=== PATIENT | male | born 1940 | race Caucasian/White ===

== ENCOUNTER 2020-03-26 10:01 | Outpatient (CLI) | payer MEDICARE, SELFPAY ==
[2020-03-26 10:26] LABS: Basophils Absolute Auto 0.1 K/mm3 (0.0-0.1); Basophils Percent Auto 1.7 % (0.2-1.2); Eosinophils Absolute Auto 0.4 K/mm3 (0-0.3); Hematocrit 43.1 % (42.0-52.0); Hemoglobin 14.7 g/dL (14.0-18.0); Immature Granulocyte Absolute 0.03 K/mm3 (0.00-0.031); Immature Granulocyte Percent A 0.4 % (0-0.5); Lymphocytes Percent Auto 25.9 % (18.3-44.2); Mean Corpuscular HGB Conc 34.1 g/dl (32-36); Mean Corpuscular Hemoglobin 32.9 pg (26-34); Mean Corpuscular Volume 96.4 fl (80-100); Mean Platelet Volume 10.4 fl (7.4-10.4); Monocytes Absolute Auto 0.7 K/mm3 (0.1-0.6); Monocytes Percent Auto 10.4 % (2.6-8.5); Neutrophils Absolute Auto 3.9 K/mm3 (1.3-6.7); Neutrophils Percent Auto 56.6 % (45.5-73.1); Platelet Count Result 241 k/mm3 (150-375); Red Blood Count 4.47 M/mm3 (4.6-6.20); Red Cell Distribution Width 12.8 % (11.5-14.5)
[2020-03-26 10:38] LABS: Alanine Aminotransferase 20 U/L (4-50); Alkaline Phosphatase 71 U/L (38-126); Aspartate Amino Transferase 30 U/L (17-59); Bilirubin,Total 0.7 mg/dL (0.2-1.3); Blood Urea Nitrogen 10 mg/dL (9-20); Calcium 9.2 mg/dL (8.4-10.2); Carbon Dioxide 28 mmol/L (22-30); Chloride 104 mmol/L (98-107); Cholesterol 183 mg/dL (0-200); Estimated Glomerular Filt Rate 58; Glucose 95 mg/dL (75-110); HDL Direct 37 mg/dL; Potassium 4.2 mmol/L (3.4-5.0); Sodium 137 mmol/L (137-145); Triglycerides 235 mg/dL (<150)
[2020-03-26 10:49] LABS: LDL Cholesterol Direct 114 mg/dL
[2020-03-26 11:09] LABS: Prostate Specific Antigen 2.3 ng/mL (< OR = 4.0); Total Triiodothyronine (T3) 0.94 NG/ML (0.97-1.69)
[2020-03-26 11:25] LABS: Creatinine Urine 162.7 mg/dL
[2020-03-26 11:28] LABS: MALB Creatinine Ratio 15.4 mg/g (0-30)
[2020-03-26 11:38] LABS: Free T4 Free Thyroxine 1.46 ng/mL (0.78-2.19); Vitamin D 25 Hydroxy 30.3 ng/mL
== END 2020-03-26 10:02 | disposition home or self-care (01) ==
PROVIDERS: PCP Family Medicine; Visit Provider Family Medicine
DX: I12.9 Hypertensive chronic kidney disease with stage 1 through stage 4 chronic kidney disease, or unspecified chronic kidney disease (principal); E55.9 Vitamin D deficiency, unspecified; N40.1 Benign prostatic hyperplasia with lower urinary tract symptoms; N18.2 Chronic kidney disease, stage 2 (mild); E78.2 Mixed hyperlipidemia; R53.1 Weakness; Z12.5 Encounter for screening for malignant neoplasm of prostate; R80.9 Proteinuria, unspecified
CPT/HCPCS: 36415; 80053; 80061; 82043; 82306; 84153; 84439; 84443; 84480; 85025; G0103

== ENCOUNTER 2020-08-14 08:33 | Outpatient (CLI) | payer MEDICARE, SELFPAY ==
[2020-08-14 09:15] LABS: Alanine Aminotransferase 24 U/L (4-50); Albumin Level 4.1 g/dL (3.5-5.1); Alkaline Phosphatase 78 U/L (38-126); Anion Gap 9 mmol/L (8-16); Aspartate Amino Transferase 41 U/L (17-59); Bilirubin,Total 0.6 mg/dL (0.2-1.3); Blood Urea Nitrogen 19 mg/dL (9-20); Calcium 9.6 mg/dL (8.4-10.2); Carbon Dioxide 27 mmol/L (22-30); Chloride 107 mmol/L (98-107); Estimated Glomerular Filt Rate 58; Glucose 107 mg/dL (75-110); Potassium 3.8 mmol/L (3.4-5.0); Sodium 143 mmol/L (137-145)
[2020-08-14 09:45] LABS: Thyroid Stimulating Hormone 0.985 uIU/mL (0.465-4.680)
== END 2020-08-14 08:34 | disposition home or self-care (01) ==
PROVIDERS: PCP Family Medicine; Visit Provider Internal Medicine Cardiovascular Disease
DX: Z79.899 Other long term (current) drug therapy (principal)
CPT/HCPCS: 36415; 80053; 84443

== ENCOUNTER 2020-09-03 13:25 | Outpatient (CLI) | payer MEDICARE, SELFPAY ==
--- NOTE | ~2020-09-03 | XR_ITS ---
XR chest 2V DATE: 09/03/2020 13:50 INDICATION: Amiodarone therapy TECHNIQUE: PA and lateral views COMPARISON: 05/19/2014 PA and lateral chest FINDINGS: Left pacemaker device with leads overlying right atrium and right ventricle. Heart size is within upper limits of normal. There is aortic calcification and unfolding. No hilar or mediastinal enlargement. No pulmonary infiltrate or consolidation, pleural effusion or pulmonary vascular congestion or pneumo thorax. Degenerative change of the thoracic and lumbar spine. IMPRESSION: Left-sided dual-lead pacemaker device No active cardiopulmonary disease Aortic atherosclerosis Reviewed, dictated and finalized at location A.
== END 2020-09-03 13:26 | disposition home or self-care (01) ==
PROVIDERS: PCP Family Medicine; Visit Provider Internal Medicine Cardiovascular Disease
DX: Z79.899 Other long term (current) drug therapy (principal); Z95.0 Presence of cardiac pacemaker; I70.0 Atherosclerosis of aorta
CPT/HCPCS: 71046

== ENCOUNTER 2020-09-10 09:49 | Outpatient (CLI) | payer MEDICARE, SELFPAY ==
[2020-09-10 11:21] LABS: Basophils Absolute Auto 0.1 K/mm3 (0.0-0.1); Basophils Percent Auto 1.9 % (0.2-1.2); Eosinophils Absolute Auto 0.3 K/mm3 (0-0.3); Hematocrit 41.8 % (42.0-52.0); Hemoglobin 14.3 g/dL (14.0-18.0); Immature Granulocyte Absolute 0.02 K/mm3 (0.00-0.031); Immature Granulocyte Percent A 0.3 % (0-0.5); Lymphocytes Absolute Auto 1.42 K/mm3 (0.9-3.2); Lymphocytes Percent Auto 21.1 % (18.3-44.2); Mean Corpuscular HGB Conc 34.2 g/dl (32-36); Mean Corpuscular Hemoglobin 33.3 pg (26-34); Mean Corpuscular Volume 97.4 fl (80-100); Mean Platelet Volume 10.4 fl (7.4-10.4); Monocytes Absolute Auto 0.7 K/mm3 (0.1-0.6); Monocytes Percent Auto 10.1 % (2.6-8.5); Neutrophils Absolute Auto 4.2 K/mm3 (1.3-6.7); Neutrophils Percent Auto 62.6 % (45.5-73.1); Platelet Count Result 240 k/mm3 (150-375); Red Blood Count 4.29 M/mm3 (4.6-6.20); Red Cell Distribution Width 12.4 % (11.5-14.5); White Blood Count 6.7 K/mm3 (4.5-10.0)
[2020-09-10 11:36] LABS: Alanine Aminotransferase 27 U/L (4-50); Albumin Level 3.7 g/dL (3.5-5.1); Alkaline Phosphatase 69 U/L (38-126); Anion Gap 8 mmol/L (8-16); Aspartate Amino Transferase 37 U/L (17-59); Bilirubin,Total 0.7 mg/dL (0.2-1.3); Blood Urea Nitrogen 17 mg/dL (9-20); Calcium 9.1 mg/dL (8.4-10.2); Carbon Dioxide 31 mmol/L (22-30); Chloride 102 mmol/L (98-107); Cholesterol 115 mg/dL (0-200); Creatine Kinase 148 U/L (55-170); Estimated Glomerular Filt Rate > 60; Glucose 96 mg/dL (75-110); HDL Direct 34 mg/dL; Potassium 3.9 mmol/L (3.4-5.0); Sodium 141 mmol/L (137-145); Triglycerides 137 mg/dL (<150)
[2020-09-10 11:47] LABS: LDL Cholesterol Direct 58 mg/dL
[2020-09-10 12:02] LABS: Creatinine Urine 15.4 mg/dL
[2020-09-10 12:07] LABS: Prostate Specific Antigen 1.5 ng/mL (< OR = 4.0); Thyroid Stimulating Hormone 0.798 uIU/mL (0.465-4.680); Total Triiodothyronine (T3) 0.86 NG/ML (0.97-1.69)
[2020-09-10 12:56] LABS: Free T4 Free Thyroxine 1.41 ng/mL (0.78-2.19); Vitamin D 25 Hydroxy 34.7 ng/mL
[2020-09-10 14:04] LABS: MALB Creatinine Ratio < 39.0 mg/g (0-30); Microalbumin Urine Random < 6.0 mg/L (0-16.7)
== END 2020-09-10 09:50 | disposition home or self-care (01) ==
PROVIDERS: PCP Family Medicine; Visit Provider Family Medicine
DX: M62.81 Muscle weakness (generalized) (principal); E55.9 Vitamin D deficiency, unspecified; E03.9 Hypothyroidism, unspecified; N40.0 Benign prostatic hyperplasia without lower urinary tract symptoms; E78.3 Hyperchylomicronemia; I10 Essential (primary) hypertension; Z12.5 Encounter for screening for malignant neoplasm of prostate
CPT/HCPCS: 36415; 80053; 80061; 82043; 82306; 82550; 84153; 84439; 84443; 84480; 85025; G0103

== ENCOUNTER 2021-02-03 10:36 | Outpatient (CLI) | payer MEDICARE, SELFPAY ==
[2021-02-03 11:12] LABS: Alanine Aminotransferase 34 U/L (4-50); Albumin Level 3.9 g/dL (3.5-5.1); Alkaline Phosphatase 77 U/L (38-126); Anion Gap 4 mmol/L (8-16); Aspartate Amino Transferase 45 U/L (17-59); Bilirubin,Total 0.6 mg/dL (0.2-1.3); Blood Urea Nitrogen 17 mg/dL (9-20); Calcium 9.6 mg/dL (8.4-10.2); Carbon Dioxide 32 mmol/L (22-30); Chloride 104 mmol/L (98-107); Estimated Glomerular Filt Rate 58; Glucose 107 mg/dL (75-110); Potassium 4.5 mmol/L (3.4-5.0); Sodium 140 mmol/L (137-145)
[2021-02-03 12:38] LABS: Thyroid Stimulating Hormone Reflex 0.781 uIU/mL (0.465-4.68)
== END 2021-02-03 10:37 | disposition home or self-care (01) ==
PROVIDERS: PCP Family Medicine; Visit Provider Nurse Practitioner Adult Health
DX: Z79.899 Other long term (current) drug therapy (principal)
CPT/HCPCS: 36415; 80053; 84443

== ENCOUNTER 2021-08-19 10:43 | Outpatient (CLI) | payer MEDICARE, SELFPAY ==
--- NOTE | ~2021-08-19 | XR_ITS ---
XR chest 2V DATE: 08/19/2021 11:17 INDICATION: Dyspnea on exertion TECHNIQUE: PA and lateral views COMPARISON: 09/03/2020 2 view chest FINDINGS: Normal heart size. There is a left transvenous pacemaker device with right atrial and righ t ventricular leads. There is aortic calcification and minimal unfolding. There is no pulmonary infiltrate or consolidation, pulmonary vascular congestion or pleural effusion or pneumothorax. There is degenerative spurring of the thoracic spine. Status post cholecystectomy. IMPRESSION: No active cardiopulmonary disease Left transvenous pacemaker with right atrial and right ventricular leads Reviewed, dictated and finalized at location B.
[2021-08-19 11:29] LABS: Basophils Absolute Auto 0.1 K/mm3 (0.0-0.1); Basophils Percent Auto 1.7 % (0.2-1.2); Eosinophils Absolute Auto 0.2 K/mm3 (0-0.3); Hematocrit 46.4 % (42.0-52.0); Hemoglobin 15.4 g/dL (14.0-18.0); Immature Granulocyte Absolute 0.02 K/mm3 (0.00-0.031); Immature Granulocyte Percent A 0.3 % (0-0.5); Lymphocytes Absolute Auto 1.42 K/mm3 (0.9-3.2); Lymphocytes Percent Auto 20.4 % (18.3-44.2); Mean Corpuscular HGB Conc 33.2 g/dl (32-36); Mean Corpuscular Hemoglobin 33.2 pg (26-34); Mean Platelet Volume 10.1 fl (7.4-10.4); Monocytes Absolute Auto 0.8 K/mm3 (0.1-0.6); Neutrophils Absolute Auto 4.4 K/mm3 (1.3-6.7); Neutrophils Percent Auto 63.6 % (45.5-73.1); Platelet Count Result 279 k/mm3 (150-375); Red Blood Count 4.64 M/mm3 (4.6-6.20); Red Cell Distribution Width 13.1 % (11.5-14.5)
[2021-08-19 11:47] LABS: Alanine Aminotransferase 27 U/L (4-50); Albumin Level 4.4 g/dL (3.5-5.1); Alkaline Phosphatase 86 U/L (38-126); Anion Gap 7 mmol/L (8-16); Aspartate Amino Transferase 45 U/L (17-59); Bilirubin,Total 0.7 mg/dL (0.2-1.3); Blood Urea Nitrogen 26 mg/dL (9-20); Calcium 9.9 mg/dL (8.4-10.2); Carbon Dioxide 27 mmol/L (22-30); Chloride 104 mmol/L (98-107); Estimated Glomerular Filt Rate 58; Glucose 108 mg/dL (65-110); Potassium 4.1 mmol/L (3.4-5.0); Sodium 138 mmol/L (137-145)
== END 2021-08-19 10:44 | disposition home or self-care (01) ==
PROVIDERS: PCP Family Medicine; Visit Provider Internal Medicine Cardiovascular Disease
DX: R06.00 Dyspnea, unspecified (principal); Z79.01 Long term (current) use of anticoagulants; Z79.899 Other long term (current) drug therapy; Z95.0 Presence of cardiac pacemaker
CPT/HCPCS: 36415; 71046; 80053; 84443; 85025

== ENCOUNTER 2021-09-01 07:56 | Outpatient (CLI) | payer MEDICARE, SELFPAY ==
--- NOTE | 2021-09-01 11:29 | WPDPFTINT ---
PFT Procedure Performed PFT Procedure Performed Plethysmography (Lung Vol) Diffusing Cap (DLCO) Flow Vol Loop Spirometry w/o Bronchodil PFT Interpretation Lung volumes were measured with the body plethysmography method. The diminished expiratory reserve volume is due to obesity. The remaining lung volumes are unremarkable. Spirometry showed normal expiratory flow rates and a borderline normal FEV1 to FVC ratio 68%. No bronchodilator study was carried out. Lung diffusion capacity is within the normal range, at 99% predicted. In comparison to previous study done in July of 2019, the FVC is now lower by approximately 0.3 L but FEV1 and lung volumes are essentially unchanged. Also the lung diffusion capacity is unchanged. Impression: Spirometry and lung volumes within the normal range. Lung diffusion capacity is also within the normal range and unchanged from previous study.
== END 2021-09-01 07:57 | disposition home or self-care (01) ==
LOC: ANHPFT 07:58
PROVIDERS: PCP Family Medicine; Visit Provider Internal Medicine Cardiovascular Disease
DX: R06.00 Dyspnea, unspecified (principal); Z79.899 Other long term (current) drug therapy
CPT/HCPCS: 94375; 94726; 94729

== ENCOUNTER 2022-03-23 07:17 | Outpatient (CLI) | payer MEDICARE, SELFPAY ==
[2022-03-23 08:35] LABS: Cholesterol 161 mg/dL (0-200); HDL Direct 33 mg/dL; Triglycerides 162 mg/dL (<150)
[2022-03-23 08:46] LABS: LDL Cholesterol Direct 91 mg/dL
[2022-03-23 09:06] LABS: Thyroid Stimulating Hormone 0.744 uIU/mL (0.465-4.680)
== END 2022-03-23 07:18 | disposition home or self-care (01) ==
LOC: ANHLAB 07:21
PROVIDERS: PCP Family Medicine; Visit Provider Internal Medicine Cardiovascular Disease
DX: Z51.81 Encounter for therapeutic drug level monitoring (principal); Z79.01 Long term (current) use of anticoagulants; Z79.899 Other long term (current) drug therapy; I10 Essential (primary) hypertension
CPT/HCPCS: 36415; 80061; 84443

== ENCOUNTER 2022-10-12 10:28 | Outpatient (CLI) | payer MEDICARE, SELFPAY ==
--- NOTE | ~2022-10-12 | XR_ITS ---
XR chest 2V 10/12/2022 10:53 Indication: Patient on amiodarone therapy. Procedure: PA and lateral views of the chest Comparison: Comparison to multiple prior studies sequentially, with oldest reviewed study dated 05/19. Findings: Heart size normal. Pacemaker leads are stable. There is worsening bibasilar airspace diseas e compared with 08/19/2021 and 09/03/2020. No significant effusion. No pneumothorax. The lungs are hy perinflated which is consistent with, but not diagnostic of chronic obstructive pulmonary disease. Impression: 1: Progressive increase of bibasilar infiltrates which may represent atelectasis/fibrosis or less lik jim atypical pneumonia. Reviewed, dictated and finalized at location A. CAST PRODUCER Impression: 1: Progressive increase of bibasilar infiltrates which may represent atelectasi s/fibrosis or less likely atypical pneumonia.
== END 2022-10-12 10:29 | disposition home or self-care (01) ==
PROVIDERS: PCP Family Medicine; Visit Provider Internal Medicine Cardiovascular Disease
DX: R06.09 Other forms of dyspnea (principal); Z79.899 Other long term (current) drug therapy; R91.8 Other nonspecific abnormal finding of lung field
CPT/HCPCS: 71046

== ENCOUNTER 2022-10-21 12:30 | Outpatient (CLI) | payer MEDICARE, SELFPAY ==
--- NOTE | ~2022-10-21 | CT_ITS ---
EXAMINATION: CT chest high resolution wo id DATE: 10/21/2022 12:54 INDICATION: Assess for interstitial lung disease TECHNIQUE: Computed tomography (CT) of the chest was performed without intravenous contrast. The dose -length product (DLP) was 504.74 mGy-cm. Automated exposure control and iterative reconstruction tech [employer] were employed. COMPARISON: None FINDINGS: The lungs are free of acute opacities. No pleural effusion or pneumothorax. There is no def inite evidence of interstitial lung disease. A dual-lead cardiac pacemaker of the left chest wall end s with leads in expected locations. No pathologically enlarged thoracic lymph nodes are identified. T he heart size is normal. There is a multinodular goiter of the right thyroid lobe. A small sliding hi atal hernia is noted. There are bridging osteophytes at multiple levels in the spine, consistent with diffuse idiopathic skeletal hyperostosis (DISH). IMPRESSION: 1. No specific findings of interstitial lung disease. 2. Multinodular goiter of the right thyroid lobe. Consider thyroid ultrasound for risk stratification . Reviewed, dictated and finalized at location A. OR ORE CONTROLLER IMPRESSION: 1. No specific findings of interstitial lung disease. 2. Multinodular goiter of the right thyroid lobe. Consider thyroid ultrasound f or risk stratification.
== END 2022-10-21 12:31 | disposition home or self-care (01) ==
PROVIDERS: PCP Family Medicine; Visit Provider Internal Medicine Cardiovascular Disease
DX: Z91.89 Other specified personal risk factors, not elsewhere classified (principal); Z79.899 Other long term (current) drug therapy; E04.2 Nontoxic multinodular goiter
CPT/HCPCS: 71250

== ENCOUNTER 2022-10-27 08:51 | Outpatient (CLI) | payer MEDICARE, SELFPAY ==
--- NOTE | 2022-10-27 13:25 | P.PCNPFT_ITS ---
PFT Procedure Performed PFT Procedure Performed Plethysmography (Lung Vol) Diffusing Cap (DLCO) Flow Vol Loop Spirometry w/o Bronchodil PFT Interpretation This is a pulmonary function test with spirometry, plethysmography and diffusing capacity. The test was performed and results interpreted in accordance with the 2019 and 2005 ATS/ERS Task Force guidelines respectively using the Global Lung Function Initiative-2012 reference equations. Patient demonstrated good effort and cooperation. Reproducibility criteria were met. The quality of the spirometry maneuver was Grade A. Findings: Spirometry: The contour the inspiratory and expiratory flow tracing are normal. The FVC is 3.64 L, 102% predicted. The FEV1 is 2.52 L, 96% predicted. The FEV1: FVC ratio 69%. Plethysmography: The total lung capacity is 6.76 L, 101% predicted. The functional residual capacity is 3.77 L, 104% predicted. The residual volume is 3.12 L, 119% predicted. Diffusing capacity: The diffusing capacity unadjusted for hemoglobin and carboxyhemoglobin is 21.9, 98% predicted. The diffusing capacity adjusted for a lveolar volume is 3.96, 109% predicted. In comparison to previous pulmonary function test on 09/01/2021 the FVC is unchanged from 3.42 L to 3.64 L. The FEV1 is unchanged from 2.33 L to 2.52 L. The total lung capacity is unchanged from 6.45 L to 6.76 L. The functional residual capacity is increased from 3.17 L to 3.77 L. The residual volume is unchanged from 3.03 L to 3.12 L. The diffusing capacity unadjusted for hemoglobin and carboxyhemoglobin is unchanged from 22.4 to 21.9. The diffusing capacity adjusted for alveolar volume is un changed from 4.17 to 3.96. Impression: The spirometry is normal without evidence of an obstructive abnormality. The lung volumes are normal. The diffusing capacity is normal. In comparison to previous pulmonary function testing on 09/01/2021 there is a greater than anticipated time dependent increase in the functional residual capacity and no significant change in the FVC, FEV1, total lung capacity, residual volume or diffusing capacity. Clinical correlation is recommended.
== END 2022-10-27 08:52 | disposition home or self-care (01) ==
LOC: ANHPFT 08:52
PROVIDERS: PCP Family Medicine; Visit Provider Internal Medicine Cardiovascular Disease
DX: Z51.81 Encounter for therapeutic drug level monitoring (principal); Z79.899 Other long term (current) drug therapy; Z91.89 Other specified personal risk factors, not elsewhere classified
CPT/HCPCS: 94375; 94726; 94729

== ENCOUNTER 2022-11-18 14:21 | Outpatient (CLI) | payer MEDICARE, SELFPAY ==
[2022-11-18 15:20] LABS: Basophils Absolute Auto 0.1 K/mm3 (0.0-0.1); Basophils Percent Auto 2.3 % (0.2-1.2); Eosinophils Absolute Auto 0.3 K/mm3 (0-0.3); Eosinophils Percent Auto 5.4 % (0-4.4); Hematocrit 42.9 % (42.0-52.0); Hemoglobin 14.7 g/dL (14.0-18.0); Immature Granulocyte Absolute 0.02 K/mm3 (0.00-0.031); Immature Granulocyte Percent A 0.3 % (0-0.5); Lymphocytes Absolute Auto 1.48 K/mm3 (0.9-3.2); Lymphocytes Percent Auto 24.1 % (18.3-44.2); Mean Corpuscular HGB Conc 34.3 g/dl (32-36); Mean Corpuscular Hemoglobin 32.5 pg (26-34); Mean Corpuscular Volume 94.9 fl (80-100); Mean Platelet Volume 10.6 fl (7.4-10.4); Monocytes Absolute Auto 0.7 K/mm3 (0.1-0.6); Monocytes Percent Auto 11.1 % (2.6-8.5); Neutrophils Absolute Auto 3.5 K/mm3 (1.3-6.7); Neutrophils Percent Auto 56.8 % (45.5-73.1); Platelet Count Result 264 k/mm3 (150-375); Red Blood Count 4.52 M/mm3 (4.6-6.20); Red Cell Distribution Width 12.5 % (11.5-14.5); White Blood Count 6.2 K/mm3 (4.5-10.0)
[2022-11-18 16:20] LABS: Vitamin D 25 Hydroxy 34.7 ng/mL
[2022-11-18 16:49] LABS: Creatinine Urine 120.2 mg/dL
[2022-11-18 16:53] LABS: Microalbumin Urine Random 82.9 mg/L (0-16.7)
[2022-11-18 17:27] LABS: Alanine Aminotransferase 22 U/L (6-50); Alkaline Phosphatase 82 U/L (38-126); Anion Gap 8 mmol/L (8-16); Aspartate Amino Transferase 31 U/L (17-59); Bilirubin,Total 0.8 mg/dL (0.2-1.3); Blood Urea Nitrogen 11 mg/dL (9-20); Calcium 9.4 mg/dL (8.4-10.2); Carbon Dioxide 25 mmol/L (22-30); Chloride 107 mmol/L (98-107); Cholesterol 169 mg/dL (0-200); Estimated Glomerular Filt Rate > 60; Glucose 93 mg/dL (65-110); HDL Direct 35 mg/dL; Potassium 4.2 mmol/L (3.4-5.0); Sodium 140 mmol/L (137-145); Triglycerides 165 mg/dL (<150)
[2022-11-18 17:40] LABS: LDL Cholesterol Direct 99 mg/dL
[2022-11-18 17:59] LABS: Thyroid Stimulating Hormone 0.588 uIU/mL (0.465-4.680); Total Triiodothyronine (T3) 0.92 NG/ML (0.97-1.69)
== END 2022-11-18 14:22 | disposition home or self-care (01) ==
PROVIDERS: PCP Family Medicine; Visit Provider Family Medicine
DX: I50.9 Heart failure, unspecified (principal); I48.91 Unspecified atrial fibrillation; G47.30 Sleep apnea, unspecified; E04.1 Nontoxic single thyroid nodule; R32 Unspecified urinary incontinence; R13.10 Dysphagia, unspecified
CPT/HCPCS: 36415; 80053; 80061; 82043; 82306; 84153; 84436; 84443; 84480; 85025

== ENCOUNTER 2022-11-23 10:51 | Outpatient (CLI) | payer MEDICARE, SELFPAY ==
--- NOTE | ~2022-11-23 | US_ITS ---
EXAMINATION: US thyroid DATE: 11/23/2022 12:21 INDICATION: Thyroid nodule TECHNIQUE: Multiple ultrasound images of the thyroid were obtained. COMPARISON: None. FINDINGS: The right thyroid lobe measures 5.1 x 3.1 x 2.8 cm. The left thyroid lobe measures 4.9 x 1.6 x 2.1 c m. The thyroid isthmus measures 6 mm . There are 3 relatively similar appearing solid heterogeneousl y hypoechoic masses in the right thyroid which are wider than tall and with smooth with ill-defined m argins and without echogenic foci (TI-RADS 4, moderately suspicious , FNA if >=1.5 cm, annual followu p is >=1 cm). The largest and most caudal measures 3.3 cm maximal diameter, the middle and second lar gest measures 2.3 cm in the most cephalad and smallest measures 1.3 cm. There are 2 nodules in the le ft thyroid lobe, the largest with similar appearance measuring 1.6 cm. The smaller is also similar in appearance aside from a significant cystic component (TI-RADS 3, mildly suspicious , FNA if >=2.5 cm , annual followup is >=1.5 cm). IMPRESSION: 1. Multinodular goiter. Recommend ultrasound-guided biopsy of the 2 largest 3.3 cm and 2.3 cm TI RADS 4 right thyroid nodules. Reviewed, dictated and finalized at location A. D ICER
== END 2022-11-23 10:52 | disposition home or self-care (01) ==
PROVIDERS: PCP Family Medicine; Visit Provider Nurse Practitioner Adult Health
DX: E04.2 Nontoxic multinodular goiter (principal); R13.10 Dysphagia, unspecified
CPT/HCPCS: 76536

== ENCOUNTER 2022-12-04 12:17 | Outpatient (CLI) | payer MEDICARE, SELFPAY ==
--- NOTE | ~2022-12-04 | US_ITS ---
EXAMINATION: US thyroid DATE: 12/04/2022 14:15 INDICATION: Multinodular goiter. TECHNIQUE: Multiple ultrasound images of the thyroid were obtained. COMPARISON: Thyroid ultrasound 11/23/2022, neck CT 02/03/2017 FINDINGS: Contiguous nodules in right thyroid lobe together measure 4.3 x 3.1 x 3.3 cm. On the prior ultrasound , the sizes of multiple nodules together contributing to this larger mass were measured. IMPRESSION: 1. Right thyroid nodules, stable from the CT from 02/03/2017, likely benign. Given this long-term stab ility, the biopsy was canceled. Reviewed, dictated and finalized at location A. T OFFICE ADMINISTRATOR IMPRESSION: 1. Right thyroid nodules, stable from the CT from 02/03/2017, likely benign. Giv en this long-term stability, the biopsy was canceled.
== END 2022-12-04 12:18 | disposition home or self-care (01) ==
PROVIDERS: PCP Family Medicine; Visit Provider Nurse Practitioner Adult Health
DX: E04.2 Nontoxic multinodular goiter (principal)
CPT/HCPCS: 76536

== ENCOUNTER 2023-04-09 09:41 | Outpatient (CLI) | payer MEDICARE, SELFPAY ==
[2023-04-09 10:32] LABS: Alanine Aminotransferase 22 U/L (6-50); Albumin Level 3.9 g/dL (3.5-5.1); Alkaline Phosphatase 68 U/L (38-126); Anion Gap 7 mmol/L (8-16); Aspartate Amino Transferase 27 U/L (17-59); Bilirubin,Total 0.6 mg/dL (0.2-1.3); Blood Urea Nitrogen 14 mg/dL (9-20); Calcium 9.1 mg/dL (8.4-10.2); Carbon Dioxide 28 mmol/L (22-30); Chloride 106 mmol/L (98-107); Estimated Glomerular Filt Rate > 60; Glucose 105 mg/dL (65-110); Potassium 4.2 mmol/L (3.4-5.0); Sodium 141 mmol/L (137-145)
== END 2023-04-09 09:42 | disposition home or self-care (01) ==
LOC: ANHLAB 09:44
PROVIDERS: PCP Family Medicine; Visit Provider Internal Medicine Cardiovascular Disease
DX: I48.92 Unspecified atrial flutter (principal); Z79.899 Other long term (current) drug therapy
CPT/HCPCS: 36415; 80053; 84443

== ENCOUNTER 2023-09-14 10:13 | Emergency (ER) | payer MEDICARE, SELFPAY ==
--- NOTE | ~2023-09-14 | CT_ITS ---
CT of the Abdomen and Pelvis: Indication: Abdominal pain Technique: 2.5 mm axial scans were obtained through the abdomen and pelvis following intravenous adm inistration of 100 cc of Omnipaque 350. Dose reduction technique was used on this scan by utilizing a utomated exposure control and iterative reconstruction technique. The dose-length product (DLP) was 1 050.47 mGy-cm. Findings: Scans through the lung bases are unremarkable. The liver, spleen, pancreas, adrenals and right kidney are within normal limits. Cholecystectomy clip s are present. Small nonobstructing left lower pole renal stone noted. There are atherosclerotic calc ifications of the aorta. No lymphadenopathy. No bowel obstruction or bowel wall thickening. There is no evidence to suggest acute appendicitis. Sm all ventral fat-containing hernia present. Images through the pelvis are degraded by streak artifact from bilateral hip arthroplasty. Urinary bl adder unremarkable. No definite pelvic mass seen. Bilateral fat-containing inguinal hernias are prese nt, left greater than right. No ascites. Impression: Bilateral fat-containing hernias, left greater than right. Small ventral hernia. Small nonobstructing left lower pole renal stone. Reviewed, dictated and finalized at location . TABLE WORKER Impression: Bilateral fat-containing hernias, left greater than right. Small ventral hernia. Small nonobstructing left lower pole renal stone.
--- NOTE | ~2023-09-14 | XR_ITS ---
EXAMINATION: XR chest 2V DATE: 09/14/2023 11:03 INDICATION: Chest pain TECHNIQUE: Frontal and lateral views of the chest are obtained COMPARISON: 10/12/2022 FINDINGS: There is mild atelectasis of the lung bases. No pleural effusion or pneumothorax. The cardi omediastinal silhouette is normal. There are bridging osteophytes at multiple levels in the spine, co nsistent with diffuse idiopathic skeletal hyperostosis (DISH). A dual-lead cardiac pacemaker of the l t chest wall ends with leads in expected locations. IMPRESSION: 1. No acute cardiopulmonary abnormality. Reviewed, dictated and finalized at location L. REFINISHER
--- NOTE | 2023-09-14 10:14 | ECG_ITS ---
Measurements Intervals [place] Rate: 115 P: 267 OK: 246 QRS: -73 QRSD: 154 T: 19 QT: 386 QTc: 534 Interpretive Statements ECTOPIC ATRIAL TACHYCARDIA RIGHT BUNDLE BRANCH BLOCK LEFT ANTERIOR FASCICULAR BLOCK CANNOT RULE OUT SEPTAL INFARCT, AGE INDETERMINATE ABNORMAL ECG NO PREVIOUS ECG AVAILABLE FOR COMPARISON Electronically Signed On 09-14-2023 10:24:49 TAPPER BIT by Reagan Dalton D.O.
[2023-09-14 10:18] VITALS: BP 109/74; PULSE 112; RESP 18; TEMP 36.5; O2SAT 100
[2023-09-14 11:03] LABS: Basophils Absolute Auto 0.1 K/mm3 (0.0-0.1); Basophils Percent Auto 0.6 % (0.2-1.2); Hemoglobin 13.7 g/dL (14.0-18.0); Immature Granulocyte Absolute 0.02 K/mm3 (0.00-0.031); Immature Granulocyte Percent A 0.2 % (0-0.5); Lymphocytes Absolute Auto 0.84 K/mm3 (0.9-3.2); Lymphocytes Percent Auto 9.5 % (18.3-44.2); Mean Corpuscular HGB Conc 33.4 g/dl (32-36); Mean Corpuscular Hemoglobin 31.7 pg (26-34); Mean Corpuscular Volume 94.9 fl (80-100); Mean Platelet Volume 10.5 fl (7.4-10.4); Monocytes Absolute Auto 0.6 K/mm3 (0.1-0.6); Monocytes Percent Auto 6.2 % (2.6-8.5); Neutrophils Absolute Auto 7.4 K/mm3 (1.3-6.7); Neutrophils Percent Auto 83.5 % (45.5-73.1); Platelet Count Result 274 k/mm3 (150-375); Red Blood Count 4.32 M/mm3 (4.6-6.20); Red Cell Distribution Width 12.7 % (11.5-14.5); White Blood Count 8.8 K/mm3 (4.5-10.0)
[2023-09-14 11:12] LABS: Alanine Aminotransferase 21 U/L (6-50); Albumin Level 4.3 g/dL (3.5-5.1); Alkaline Phosphatase 87 U/L (38-126); Anion Gap 10 mmol/L (8-16); Aspartate Amino Transferase 27 U/L (17-59); Bilirubin,Total 0.9 mg/dL (0.2-1.3); Blood Urea Nitrogen 16 mg/dL (9-20); Calcium 10.2 mg/dL (8.4-10.2); Carbon Dioxide 22 mmol/L (22-30); Chloride 105 mmol/L (98-107); Estimated CRCL calculation 60 ml/min; Estimated Glomerular Filt Rate > 60; Glucose 135 mg/dL (65-110); Lipase 110 U/L (23-300); Potassium 3.6 mmol/L (3.4-5.0); Sodium 137 mmol/L (137-145)
[2023-09-14 11:24] LABS: Troponin I < 0.012 ng/mL (0.000-0.034)
--- NOTE | 2023-09-14 11:25 | ED.CHESTPAIN ---
HPI - Chest Pain General Chief Complaint: Chest Pain Stated Complaint: nausea vomitting, chestpain Time Seen by Provider: 09/14/23 10:35 History of Present Illness HPI narrative: Pt presents with lower chest pain after having episode of emesis. Pt says he has not vomited since his Jose fundoplication procedure many years ago. Pt has been nasueated all morning and actually vomited several times. Pt has a history of non Hodgkins lymphoma and a Pacemaker and a fiv as well. Pt on xarelto. Related Data Home Medications Medication Instructions Recorded Confirmed cinnamon bark 500 mg capsule 500 mg PO DAILY 04/08/21 06/08/23 (Cinnamon) finasteride 5 mg tablet 5 mg PO DAILY 04/08/21 06/08/23 folic acid 800 mcg tablet 0.8 mg PO DAILY 04/08/21 06/08/23 furosemide 40 mg tablet 40 mg PO QAM 04/08/21 06/08/23 inulin-sorbitol 2 gram chewable tablet PO 04/08/21 06/08/23 tablet (Fiber Supplement (inulin)) lecithin 1,200 mg capsule 1,200 mg PO DAILY 04/08/21 06/08/23 lisinopril 20 mg tablet 20 mg PO DAILY 04/08/21 06/08/23 loratadine 10 mg capsule 10 mg PO DAILY 04/08/21 06/08/23 metoprolol tartrate 100 mg tablet 100 mg PO DAILY 04/08/21 06/08/23 multivitamin 1 tablet PO DAILY 04/08/21 06/08/23 rivaroxaban 20 mg tablet 20 mg PO DAILY 04/08/21 06/08/23 amlodipine 5 mg tablet 10 mg PO DAILY 06/08/23 06/08/23 Allergies Allergy/AdvReac Type Severity Reaction Status Date / Time meperidine Allergy Severe Anaphylactic Verified 09/14/23 10:54 Shock Review of Systems Review of Systems: All systems reviewed & are unremarkable except as noted in HPI and below PMFSH Past Medical History Medical History Arthritis Cancer Congestive cardiac failure Heart disease Hypertension Lipoma Pacemaker Surgical History Surgical History H/O shoulder surgery left History of cholecystectomy History of hernia repair History of hip replacement left and right, Dr. Small Family History Family History Mother Family history of primary malignant neoplasm of liver Sibling Family history of malignant neoplasm of breast in first degree relative Other Carcinoma of colon Family history of Alzheimer's disease Family history of cardiovascular disease Family history of malignant neoplasm Family history of malignant neoplasm of breast Malignant neoplasm of prostate Social History Social History Smoking status: Former smoker Smoking end date: 11/08/1964 Alcohol intake: current Gender identity (if verbalized by the patient): Male Exam Const: General: healthy appearing and no acute distress Nutritional Appearance: well nourished Orientation/consciousness: patient oriented x3 Limitations: no limitations Chest: Chest palpation & inspection: tenderness costochondral junction and costal cartilage Resp: Effort & Inspection: normal respiratory effort Auscultation: clear to auscultation bilaterally Cardio: Rate: regular rate Rhythm: abnormal rhythm GI: Auscultation: normal bowel sounds Skin: General skin exam: normal color Wounds: no wounds Neuro: General: patient oriented x3, moves all extremities, no meningeal signs and no focal motor deficits Cranial nerves: Yes Nystagmus not present Speech: normal speech Extrem: General: normal to inspection and no clubbing, cyanosis or edema Psych: Mental Status: mental status grossly normal Affect: normal affect Attitude: cooperative Course Vital Signs Vital signs: Vital Signs Temperature 97.7 F 09/14/23 10:18 Pulse Rate 112 H 09/14/23 10:18 Respiratory Rate 18 09/14/23 10:18 Blood Pressure 109/74 09/14/23 10:18 Pulse Oximetry 100 09/14/23 10:18 Oxygen Delivery Room Air 09/14/23 10:18 Temperature 97.7 F 09/14/23 10:18 Pulse Rate
[2023-09-14] MEDS: ONDANSETRON INJ 4 MG/2 ML VIAL IV PUSH (11:30)
[2023-09-14 11:31] LABS: INR 1.2; Prothrombin Time 15.7 Seconds (11.1-14.7)
[2023-09-14 11:32] LABS: Partial Thromboplastin Time 39.2 SECONDS (22.3-36.8)
[2023-09-14] MEDS: PROCHLORPERAZINE EDISYLATE 10 MG/2 ML VIAL IV PUSH (12:48)
[2023-09-14] MEDS: fentaNYL CITRATE INJ (*CRX) 100 MCG/2 ML VIAL 25 MCG IV PUSH (12:48)
[2023-09-14 14:10] VITALS: BP 124/74; PULSE 67; RESP 20; O2SAT 98
[2023-09-14 14:16] LABS: Troponin I 0.013 ng/mL (0.000-0.034)
== END 2023-09-14 14:16 | disposition home or self-care (01) ==
PROVIDERS: Emergency Provider Emergency Medicine; PCP Family Medicine
DX: K29.70 Gastritis, unspecified, without bleeding (principal); I10 Essential (primary) hypertension; Z95.0 Presence of cardiac pacemaker; Z87.891 Personal history of nicotine dependence
CPT/HCPCS: 36415; 71046; 74177; 80053; 83690; 84484; 85025; 85610; 85730; 93005; 96374; 96375; 99284; J0780; J2405; J3010; Q9967

== ENCOUNTER 2023-11-24 00:26 | Day surgery (SDC) | payer MEDICARE, SELFPAY ==
[2023-11-23 16:38] VITALS: BMI 33.5
[2023-11-24 07:39] LABS: Basophils Absolute Auto 0.2 K/mm3 (0.0-0.1); Basophils Percent Auto 2.2 % (0.2-1.2); Eosinophils Absolute Auto 0.3 K/mm3 (0-0.3); Eosinophils Percent Auto 4.8 % (0-4.4); Hematocrit 43.5 % (42.0-52.0); Hemoglobin 14.2 g/dL (14.0-18.0); Immature Granulocyte Absolute 0.01 K/mm3 (0.00-0.031); Immature Granulocyte Percent A 0.1 % (0-0.5); Lymphocytes Absolute Auto 1.73 K/mm3 (0.9-3.2); Lymphocytes Percent Auto 25.8 % (18.3-44.2); Mean Corpuscular HGB Conc 32.6 g/dl (32-36); Mean Corpuscular Hemoglobin 31.9 pg (26-34); Mean Corpuscular Volume 97.8 fl (80-100); Mean Platelet Volume 10.4 fl (7.4-10.4); Monocytes Absolute Auto 0.7 K/mm3 (0.1-0.6); Monocytes Percent Auto 10.4 % (2.6-8.5); Neutrophils Absolute Auto 3.8 K/mm3 (1.3-6.7); Neutrophils Percent Auto 56.7 % (45.5-73.1); Platelet Count Result 249 k/mm3 (150-375); Red Blood Count 4.45 M/mm3 (4.6-6.20); Red Cell Distribution Width 12.7 % (11.5-14.5); White Blood Count 6.7 K/mm3 (4.5-10.0)
[2023-11-24 07:44] VITALS: BP 138/81; PULSE 82; RESP 13; TEMP 36.4; O2SAT 98; BMI 32.4
[2023-11-24 07:48] LABS: Anion Gap 10 mmol/L (8-16); Blood Urea Nitrogen 11 mg/dL (9-20); Calcium 9.8 mg/dL (8.4-10.2); Carbon Dioxide 25 mmol/L (22-30); Chloride 107 mmol/L (98-107); Estimated CRCL calculation 56 ml/min; Estimated Glomerular Filt Rate > 60; Glucose 108 mg/dL (65-110); Sodium 142 mmol/L (137-145)
[2023-11-24 07:50] LABS: INR 1.1; Prothrombin Time 14.3 Seconds (11.1-14.7)
--- NOTE | 2023-11-24 08:14 | PM.IMHP ---
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 Pulse generator header set reached elective replacement interval and he is scheduled for a generator change today. The patient has a history of cardioversion in 2018 and he was treated with amiodarone which was discontinued in 2021. He had recurrent AFib flutter a couple months ago a mildly increased heart rate; diltiazem was added to his metoprolol and he has been feeling well since then. Is NPO, denies any signs or symptoms of infection, and his last dose of Xarelto was on Wednesday. He has a history of hypertension, hyperlipidemia, a mildly abnormal stress test, and sleep apnea. Review of Systems Constitutional: Constitutional: Denies fever(s) Cardiovascular: Cardiovascular: Denies chest pain, Denies pedal edema, Denies lightheadedness and Denies dyspnea Respiratory: Respiratory: Denies chest congestion and Denies dyspnea Gastrointestinal: Gastrointestinal: Denies abdominal pain and Denies hematochezia Musculoskeletal: Musculoskeletal: Reports no additional musculoskeletal complaints Integumentary/Breasts: Skin/Breast: Reports system reviewed and no additional complaints, except as docu Neurologic: Reports system reviewed and no additional complaints, except as documented and Denies behavioral changes Psychiatric: Psychiatric: Denies behavioral changes [facility] Past Medical History Medical History (Updated 11/24/23 @ 08:22 by Mere Barriga MD) Arthritis Cancer Heart disease Hyperlipidemia Hypertension Lipoma ANNABELLA (obstructive sleep apnea) Pacemaker [employer] dual-chamber pacemaker [address] Bunch for tachy-coty syndrome Surgical History Surgical History H/O shoulder surgery left History of cholecystectomy History of hernia repair History of hip replacement left and right, Dr. Small Family History Family History (Updated 11/24/23 @ 08:20 by Mere Barriga MD) Mother Family history of primary malignant neoplasm of liver Sibling Family history of malignant neoplasm of breast in first degree relative Sibling Heart disease CAD, age 34 Other Carcinoma of colon Family history of Alzheimer's disease Family history of cardiovascular disease Family history of malignant neoplasm Family history of malignant neoplasm of breast Malignant neoplasm of prostate Social History Social History Smoking status: Former smoker Second hand tobacco smoke exposure: No Smoking end date: 11/08/1964 Alcohol intake: current Substance use: never Substance use type: does not use Living arrangements: with family Additional living arrangements comments: LIVES WITH [facility]. PT. IS CAREGIVER Gender identity (if verbalized by the patient): Male Spiritual care concerns: No Meds Home Medications and Allergies Home Medications Medication Instructions Recorded Confirmed Type cinnamon bark 500 mg capsule 500 mg PO DAILY 04/08/21 11/23/23 History (Cinnamon) finasteride 5 mg tablet 5 mg PO DAILY 04/08/21 11/23/23 History folic acid 800 mcg tablet 0.8 mg PO DAILY 04/08/21 11/23/23 History furosemide 40 mg tablet 40 mg PO QAM 04/08/21 11/23/23 History inulin-sorbitol 2 gram chewable 1.5 tablet PO DAILY 04/08/21 11/23/23 History tablet (Fiber Supplement (inulin)) lecithin 1,200 mg capsule 1,200 mg PO DAILY 04/08/21 11/23/23 History lisinopril 20 mg tablet 20 mg PO DAILY 04/08/21 11/23/23 History loratadine 10 mg capsule 10 mg PO DAILY 04/08/21 11/23/23 History metoprolol tartrate 100 mg tablet 75 mg PO BID 04/08/21 11/23/23 History multivitamin 1 tablet PO DA
--- NOTE | 2023-11-24 08:24 | WPDMODSED ---
Moderate Sedation Note-Pt Data Patient Data Diagnosis: pulse generator at elective replacement interval Present Complaint: dual-chamber [employer] pacemaker at elective replacement interval. History of paroxysmal atrial flutter, recently persistent. Procedure to be performed/Plan: Conscious sedation generator change Allergies Allergy/AdvReac Type Severity Reaction Status Date / Time meperidine Allergy Severe Anaphylactic Verified 11/24/23 07:29 Shock atorvastatin Allergy Muscle Pain Verified 11/24/23 07:29 Home Medications Medication Instructions Recorded Confirmed Type cinnamon bark 500 mg capsule 500 mg PO DAILY 04/08/21 11/23/23 History (Cinnamon) finasteride 5 mg tablet 5 mg PO DAILY 04/08/21 11/23/23 History folic acid 800 mcg tablet 0.8 mg PO DAILY 04/08/21 11/23/23 History furosemide 40 mg tablet 40 mg PO QAM 04/08/21 11/23/23 History inulin-sorbitol 2 gram chewable 1.5 tablet PO DAILY 04/08/21 11/23/23 History tablet (Fiber Supplement (inulin)) lecithin 1,200 mg capsule 1,200 mg PO DAILY 04/08/21 11/23/23 History lisinopril 20 mg tablet 20 mg PO DAILY 04/08/21 11/23/23 History loratadine 10 mg capsule 10 mg PO DAILY 04/08/21 11/23/23 History metoprolol tartrate 100 mg tablet 75 mg PO BID 04/08/21 11/23/23 History multivitamin 1 tablet PO DAILY 04/08/21 11/23/23 History rivaroxaban 20 mg tablet 20 mg PO DAILY 04/08/21 11/23/23 History prochlorperazine maleate 5 mg 5 mg PO Q8H PRN nausea and 09/14/23 11/23/23 Rx tablet (Compazine) vomiting #10 tabs diltiazem HCl 180 mg 180 mg PO DAILY 11/23/23 11/23/23 History capsule,extended release 24 hr, controlled (DILT-XR) lisinopril 40 mg tablet 40 mg PO QHS 11/23/23 11/23/23 History saw palmetto 450 mg capsule 450 mg PO BID 11/23/23 11/23/23 History Current Medications: Active Medications Cefazolin Sodium (Ancef 1 Gm/Ns 50 Ml) 1 gm in 50 mls @ 100 mls/hr IVPB ONCE ONE Stop: 11/24/23 08:59 Sedation/Anesthesia: No previous sedation/anesthesia problems (including family history). [facility] Past Medical History Medical History Arthritis Cancer Heart disease Hyperlipidemia Hypertension Lipoma ANNABELLA (obstructive sleep apnea) Pacemaker [employer] dual-chamber pacemaker [address] Bunch for tachy-coty syndrome Surgical History Surgical History H/O shoulder surgery left History of cholecystectomy History of hernia repair History of hip replacement left and right, Dr. Small Family History Family History Mother Family history of primary malignant neoplasm of liver Sibling Family history of malignant neoplasm of breast in first degree relative Sibling Heart disease CAD, age 34 Other Carcinoma of colon Family history of Alzheimer's disease Family history of cardiovascular disease Family history of malignant neoplasm Family history of malignant neoplasm of breast Malignant neoplasm of prostate Social History Social History Smoking status: Former smoker Second hand tobacco smoke exposure: No Smoking end date: 11/08/1964 Alcohol intake: current Substance use: never Substance use type: does not use Living arrangements: with family Additional living arrangements comments: LIVES WITH [facility]. PT. IS CAREGIVER Gender identity (if verbalized by the patient): Male Spiritual care concerns: No Mod Sed Physical Exam Physical Exam Pre Procedural Exam: Normal: Appearance, Eyes, Ears, Nose, Neck, Throat, Airway, Lungs, Heart Size, Heart Rate, Heart Rhythm, Neuro Exam, Abdomen, Extremities and Skin ( pacemaker incision is well-healed) Hours since solid foods: 8 Hours since liquid intake: 12 Mallampati Classification: class IV Internal Medicine - PN: Obj Da Vital Sig
--- NOTE | 2023-11-24 09:35 | PM.OP ---
Procedure Note - Brief Procedure Note - Brief Date of procedure: 11/24/23 MAT Post-op diagnosis: Other ( status post pacemaker generator change) Procedure performed: Conscious sedation Generator change Surgeon: Mere Barriga MD Description of procedure: uneventful generator change Complications: No immediate complications Condition: Stable Disposition: Observation
--- NOTE | 2023-11-24 09:35 | W.PM.PROC2 ---
Procedure Note - Detailed Date of Procedure 11/24/23 Pre-op Diagnosis MAT Post-op Diagnosis Other ( status post pacemaker generator change) Procedure Performed Conscious sedation Generator change Surgeon Mere Barriga MD Anesthesia Local ( with conscious sedation) Indications Kentrell Andersen is an 83-year-old male with a history of paroxysmal atrial flutter and tachy-coty syndrome, status post [employer] dual-chamber pacemaker [place] [address] Bunch.? Pulse generator has reached elective replacement interval and he is scheduled for a generator change today. The patient has a history of cardioversion in 2018 and he was treated with amiodarone which was discontinued in 2021.? He had recurrent atrial flutter a couple months ago with a mildly increased heart rate; diltiazem was added to his metoprolol and he has been feeling well since then.? He is NPO, denies any signs or symptoms of infection, and his last dose of Xarelto was on Wednesday.? He has a history of hypertension, hyperlipidemia, a mildly abnormal stress test, and sleep apnea. Findings underlying atrial flutter heart rate 80s Description of Procedure PROCEDURE: Conscious sedation Generator change UNDERLYING RHYTHM: a flutter heart rate 80s CONSCIOUS SEDATION: Assessment: The patient has no history of anesthesia problems. The oropharynx is clear. The patient was deemed to be a good candidate for conscious sedation. The patient had continuous hemodynamic and oximetric monitoring during the procedure. Start time: 8:55 a.m. Completion time: 9:28 a.m. Total conscious sedation time: 33 minutes Medications: Versed 1 mg, fentanyl 50 mcg IV push Trained observer: Briseyda Mitchell RN Outcome: The patient tolerated the procedure well with no complications. PROCEDURE: After informed consent, the patient is brought to the laborer shellfish processing and the left prepectoral area was prepped and draped in usual fashion. The patient was given a prophylactic antibiotic intravenously with 2 g of Ancef. After conscious sedation as described above, the area was anesthetized with 1% lidocaine. A skin incision is made with the Plasma Blade and carried down to the pacing capsule which was also incised. Since the header was caudal, the incision was lower than the original incision. Hemostasis is obtained using the Plasma Blade. The lead/s was/were freed from the underlying capsule and inspected and were found to be intact. The pulse generator was delivered from the pocket. The lead/s was/were disconnected from the existing device and reconnected to the new device. A gentle tug could not remove it/them. The device and lead/s was/were interrogated and found to be functioning appropriately. The area was copiously irrigated with antibiotic-containing solution. The device was replaced in the pocket. The subcutaneous tissues were closed in a two-layer fashion with interrupted 2 0 Vicryl sutures and the skin was closed in a continuous fashion using 4 0 Vicryl. The area was cleansed, an Aquacel dressing applied. The patient tolerated the procedure well with no complications. Estimated blood loss was negligible. THRESHOLD INFORMATION: Atrial lead: P-wave 0.5 mV, atrial flutter, impedance 3-75 Ohms RV lead: R-wave sensing greater than 12 mV, impedance 400 Ohms, threshold 0.75 at 0.4 milliseconds PROGRAMMED PARAMETERS: DDDR 65/130, AVD 225/200 Implants DEVICE INFORMATION: New pulse generator: [employer] model model UC2697, serial [id number] Existing right atrial lead: [employer] model 1998, 52 cm, serial [id number]? [id number], implanted 05/18/2014 Existing right ventricular lead: [employer] model 2088 TC, 58 cm, serial [id number], implanted 05/18/2014 Explant pulse generator: [employer] model 2240, serial [id number], implanted 05/18/2014 Estimated Blood Loss 5 (cc) Complications No immediate complications Condition Stable Disposition Observation
[2023-11-24 09:45] VITALS: BP 98/72; PULSE 80; RESP 16; O2SAT 94
[2023-11-24 10:00] VITALS: BP 99/68; PULSE 81; RESP 15; O2SAT 97
[2023-11-24 10:15] VITALS: BP 109/77; PULSE 80; RESP 15; O2SAT 94
[2023-11-24 10:30] VITALS: BP 121/76; PULSE 80; RESP 8; O2SAT 93
[2023-11-24 10:45] VITALS: BP 126/90; PULSE 80; RESP 18; O2SAT 94
== END 2023-11-24 11:20 | disposition home or self-care (01) ==
PROVIDERS: PCP Family Medicine; Visit Provider Internal Medicine Cardiovascular Disease
PROC: 0JPT0PZ Removal of Cardiac Rhythm Related Device from Trunk Subcutaneous Tissue and Fascia, Open Approach (ICD-10-PCS; CPT 33228; principal; 2023-11-24 08:30)
DX: Z45.010 Encounter for checking and testing of cardiac pacemaker pulse generator [battery] (principal); I48.92 Unspecified atrial flutter; Z87.891 Personal history of nicotine dependence; E78.5 Hyperlipidemia, unspecified; I10 Essential (primary) hypertension; Z96.643 Presence of artificial hip joint, bilateral
CPT/HCPCS: 33228; 36415; 80048; 85025; 85610; C1785; J0690; J2250; J3010; J7040

== ENCOUNTER 2023-12-27 00:08 | Day surgery (SDC) | payer MEDICARE, SELFPAY ==
[2023-12-24 15:39] VITALS: BMI 32.5
[2023-12-27] VITALS (22 sets, daily range): BP systolic 81–139; BP diastolic 64–98; PULSE 65–131; RESP 7–21; TEMP 36.3; O2SAT 91–100; BMI 32.5
--- NOTE | 2023-12-27 07:00 | ECG_ITS ---
Measurements Intervals [place] Rate: 77 P: [place]: 0 QRS: -61 QRSD: 176 T: 68 QT: 436 QTc: 494 Interpretive Statements ELECTRONIC VENTRICULAR PACEMAKER NO FURTHER INTERPRETATION POSSIBLE COMPARED TO ECG 09/14/2023 10:21:09 NO SIGNIFICANT CHANGES Electronically Signed On 12-27-2023 18:24:03 SUPERVISOR BRAKE REPAIR by Ronny Johnson M.D.
[2023-12-27 07:47] LABS: Anion Gap 7 mmol/L (8-16); Blood Urea Nitrogen 14 mg/dL (9-20); Carbon Dioxide 26 mmol/L (22-30); Chloride 108 mmol/L (98-107); Estimated CRCL calculation 61 ml/min; Estimated Glomerular Filt Rate > 60; Glucose 106 mg/dL (65-110); Magnesium 2.2 mg/dL (1.6-2.3); Potassium 4.1 mmol/L (3.4-5.0); Sodium 141 mmol/L (137-145)
--- NOTE | 2023-12-27 08:59 | WPDMODSED ---
Moderate Sedation Note-Pt Data Patient Data Diagnosis: Recurrent atrial fibrillation Present Complaint: no complaints Procedure to be performed/Plan: DC cardioversion Allergies Allergy/AdvReac Type Severity Reaction Status Date / Time meperidine Allergy Severe Anaphylactic Verified 12/24/23 15:32 Shock atorvastatin AdvReac Muscle Pain Verified 12/24/23 15:32 Home Medications Medication Instructions Recorded Confirmed Type cinnamon bark 500 mg capsule 500 mg PO DAILY 04/08/21 12/24/23 History (Cinnamon) finasteride 5 mg tablet 5 mg PO DAILY 04/08/21 12/24/23 History folic acid 800 mcg tablet 0.8 mg PO DAILY 04/08/21 12/24/23 History furosemide 40 mg tablet 40 mg PO QAM 04/08/21 12/24/23 History lecithin 1,200 mg capsule 1,200 mg PO DAILY 04/08/21 12/24/23 History lisinopril 20 mg tablet 20 mg PO DAILY 04/08/21 12/24/23 History loratadine 10 mg capsule 10 mg PO DAILY 04/08/21 12/24/23 History multivitamin 1 tablet PO DAILY 04/08/21 12/24/23 History rivaroxaban 20 mg tablet 20 mg PO HS 04/08/21 12/27/23 History prochlorperazine maleate 5 mg 5 mg PO Q8H PRN nausea and 09/14/23 12/24/23 Rx tablet (Compazine) vomiting #10 tabs diltiazem HCl 180 mg 180 mg PO DAILY 11/23/23 12/24/23 History capsule,extended release 24 hr, controlled (DILT-XR) lisinopril 40 mg tablet 40 mg PO QHS 11/23/23 12/24/23 History saw palmetto 450 mg capsule 450 mg PO BID 11/23/23 11/23/23 History inulin 2 gram chewable tablet 2 g PO DAILY 12/24/23 12/24/23 History (Prebiotic Fiber) metoprolol tartrate 50 mg tablet 75 mg PO BID 12/24/23 12/24/23 History Current Medications: Active Medications Sodium Chloride (Normal Saline Iv) 1,000 mls @ 30 mls/hr IV CONT .Q24H HERMANN Sedation/Anesthesia: No previous sedation/anesthesia problems (including family history). [facility] Past Medical History Medical History Arthritis Cancer Heart disease Hyperlipidemia Hypertension Lipoma ANNABELLA (obstructive sleep apnea) Pacemaker [employer] dual-chamber pacemaker [address] Bunch for tachy-coty syndrome Surgical History Surgical History H/O shoulder surgery left History of cholecystectomy History of hernia repair History of hip replacement left and right, Dr. Small Family History Family History Mother Family history of primary malignant neoplasm of liver Sibling Family history of malignant neoplasm of breast in first degree relative Sibling Heart disease CAD, age 34 Other Carcinoma of colon Family history of Alzheimer's disease Family history of cardiovascular disease Family history of malignant neoplasm Family history of malignant neoplasm of breast Malignant neoplasm of prostate Social History Social History Smoking status: Former smoker Second hand tobacco smoke exposure: No Smoking end date: 11/08/1964 Alcohol intake: current Substance use: never Substance use type: does not use Living arrangements: with family Additional living arrangements comments: LIVES WITH [facility]. PT. IS CAREGIVER Gender identity (if verbalized by the patient): Male Spiritual care concerns: No Mod Sed Physical Exam Physical Exam Pre Procedural Exam: Normal: Appearance ( pleasant elderly man no distress), Throat, Airway, Lungs, Heart Size, Heart Rate, Neuro Exam and Extremities and Variation: Heart Rhythm ( paced rhythm) Hours since solid foods: 12 Hours since liquid intake: 12 Mallampati Classification: class II Internal Medicine - PN: Obj Da Vital Signs Vital Signs: Vital Signs - 24 hr 12/27/23 07:28 Temperature 36.3 C L Pulse Rate 86 Respiratory Rate 12 Blood Pressure 139/86 Pulse Oximetry 98 Oxygen Delivery Room Air Meds/Results Medications: Active Medica
--- NOTE | 2023-12-27 09:00 | PM.IMHP ---
H&P: HPI History of Present Illness Date/Time: 12/27/23 09:00 Chief Complaint: no complaints Narrative: this is an 83-year-old man with a history of paroxysmal atrial fibrillation and a history of a chronically implanted pacemaker device. He follows with my partner, Dr. Hernandez. He has had a recent pacemaker generator change in November of this year. He has been noted to be in atrial fib for the last couple of months. An attempt at restoring sinus rhythm electrically has been scheduled for this morning. He is anticoagulated with Xarelto and reports no missed doses. Review of Systems Constitutional: Constitutional: Reports fatigue and Reports lethargy Eyes: Eyes: Reports no additional eye complaints ENT: Reports system reviewed and no additional complaints, except as documented Cardiovascular: Cardiovascular: Reports no additional cardiovascular complaints Respiratory: Respiratory: Reports dyspnea on exertion Gastrointestinal: Gastrointestinal: Reports no additional gastrointestinal complaints Musculoskeletal: Musculoskeletal: Reports no additional musculoskeletal complaints Integumentary/Breasts: Skin/Breast: Reports system reviewed and no additional complaints, except as docu Neurologic: Reports system reviewed and no additional complaints, except as documented PMFSH Past Medical History Medical History Arthritis Cancer Heart disease Hyperlipidemia Hypertension Lipoma ANNABELLA (obstructive sleep apnea) Pacemaker [employer]'s dual-chamber pacemaker [address] Bunch for tachy-coty syndrome Surgical History Surgical History H/O shoulder surgery left History of cholecystectomy History of hernia repair History of hip replacement left and right, Dr. Small Family History Family History Mother Family history of primary malignant neoplasm of liver Sibling Family history of malignant neoplasm of breast in first degree relative Sibling Heart disease CAD, age 34 Other Carcinoma of colon Family history of Alzheimer's disease Family history of cardiovascular disease Family history of malignant neoplasm Family history of malignant neoplasm of breast Malignant neoplasm of prostate Social History Social History Smoking status: Former smoker Second hand tobacco smoke exposure: No Smoking end date: 11/08/1964 Alcohol intake: current Substance use: never Substance use type: does not use Living arrangements: with family Additional living arrangements comments: LIVES WITH , [facility]. PT. IS CAREGIVER Gender identity (if verbalized by the patient): Male Spiritual care concerns: No Meds Home Medications and Allergies Home Medications Medication Instructions Recorded Confirmed Type cinnamon bark 500 mg capsule 500 mg PO DAILY 04/08/21 12/24/23 History (Cinnamon) finasteride 5 mg tablet 5 mg PO DAILY 04/08/21 12/24/23 History folic acid 800 mcg tablet 0.8 mg PO DAILY 04/08/21 12/24/23 History furosemide 40 mg tablet 40 mg PO QAM 04/08/21 12/24/23 History lecithin 1,200 mg capsule 1,200 mg PO DAILY 04/08/21 12/24/23 History lisinopril 20 mg tablet 20 mg PO DAILY 04/08/21 12/24/23 History loratadine 10 mg capsule 10 mg PO DAILY 04/08/21 12/24/23 History multivitamin 1 tablet PO DAILY 04/08/21 12/24/23 History rivaroxaban 20 mg tablet 20 mg PO HS 04/08/21 12/27/23 History prochlorperazine maleate 5 mg 5 mg PO Q8H PRN nausea and 09/14/23 12/24/23 Rx tablet (Compazine) vomiting #10 tabs diltiazem HCl 180 mg 180 mg PO DAILY 11/23/23 12/24/23 History capsule,extended release 24 hr, controlled (DILT-XR) lisinopril 40 mg tablet 40 mg PO QHS 11/23/23 12/24/23 History saw palmetto 450 mg capsule 450 mg PO BID 11/23/23 11/23/23 History inulin 2 gram
--- NOTE | 2023-12-27 09:23 | WPDCARDPROC ---
Cardiac Cath Procedure Note Date of procedure:: 12/27/23 Performing physician:: Mario Chambers MD Indication:: atrial fibrillation/atrial flutter /sick sinus syndrome with pacemaker implant Brief clinical history:: this is an 83-year-old man with a history of atrial fib/ atrial flutter. He also has a dual-chamber pacemaker implant for treatment of sick sinus syndrome / tachy-coty syndrome. He has been noted to be in atrial fib for approximately 2 months and an attempt at restoring sinus rhythm has been recommended and scheduled for today. Current rhythm is AFib with intrinsic rhythm alternating with electronic ventricular pacing. Procedure Procedure performed:: DC cardioversion Sedation/Medication given:: IV propofol in aliquots total dosage of 80 mg administered Access site:: right brachial vein Estimated blood loss:: none Procedure note:: patient was brought to the cardiac catheterization lab in the postabsorptive state defibrillator patches were placed in the AP position peripheral access was obtained in the right upper extremity. He was then sedated using propofol in aliquots. When good sedation was not achieved he was counter shocked with 200 joules times 1 in a synchronized fashion which did not change his cardiac rhythm. He was then counter shocked in a synchronized fashion with 360 joules which very briefly restored sinus rhythm with intrinsic QRS. Within approximately 20-30 seconds, before an EKG could be done he was in an atrial tachycardia, probably atrial flutter with atrial sensing and ventricular pacing with a ventricular upper rate limit behavior being demonstrated. Findings:: As above Conclusion:: uncomplicated but unsuccessful DC card cardioversion for with atrial fibrillation briefly restoring sinus rhythm but now with atrial flutter with pacemaker demonstrating upper rate limit behavior. Pacemaker rep from [employer] will be called into reprogrammed the device to VVI to terminate this tachycardia. Systemic anticoagulation will be continued and follow-up in the office will be arranged to determine long-term course of treatment which of course includes either rate control and anticoagulation verses re loading with amiodarone and considering another cardioversion following that. Mario Chambers MD [facility]
== END 2023-12-27 11:45 | disposition home or self-care (01) ==
PROVIDERS: PCP Family Medicine; Visit Provider Specialist
PROC: 5A2204Z Restoration of Cardiac Rhythm, Single (ICD-10-PCS; principal; 2023-12-27 08:30)
DX: I48.0 Paroxysmal atrial fibrillation (principal); I10 Essential (primary) hypertension; E78.5 Hyperlipidemia, unspecified; G47.33 Obstructive sleep apnea (adult) (pediatric); Z79.01 Long term (current) use of anticoagulants; Z98.890 Other specified postprocedural states; Z90.49 Acquired absence of other specified parts of digestive tract; Z95.0 Presence of cardiac pacemaker; Z87.891 Personal history of nicotine dependence; Z85.9 Personal history of malignant neoplasm, unspecified; Z86.79 Personal history of other diseases of the circulatory system; Z80.0 Family history of malignant neoplasm of digestive organs; Z80.3 Family history of malignant neoplasm of breast; Z82.49 Family history of ischemic heart disease and other diseases of the circulatory system; Z80.42 Family history of malignant neoplasm of prostate
CPT/HCPCS: 36415; 80048; 83735; 92960; J0461; J2704; J7030

== ENCOUNTER 2024-01-12 09:44 | Outpatient (CLI) | payer MEDICARE, SELFPAY ==
[2024-01-12 10:44] LABS: Hemoglobin A1C 5.8 % (<5.7)
[2024-01-12 10:51] LABS: LDL Cholesterol Direct 99 mg/dL
[2024-01-12 11:10] LABS: Cholesterol 157 mg/dL (0-200); HDL Direct 35 mg/dL; Triglycerides 191 mg/dL (<150)
== END 2024-01-12 09:45 | disposition home or self-care (01) ==
PROVIDERS: PCP Family Medicine; Visit Provider Registered Nurse
DX: E78.5 Hyperlipidemia, unspecified (principal); R73.01 Impaired fasting glucose; I10 Essential (primary) hypertension
CPT/HCPCS: 36415; 80061; 83036

== ENCOUNTER 2024-01-31 00:07 | Day surgery (SDC) | payer MEDICARE, SELFPAY ==
--- NOTE | 2024-01-31 07:00 | ECG_ITS ---
Measurements Intervals [place] Rate: 60 P: 240 MN: 256 QRS: -75 QRSD: 153 T: 78 QT: 489 QTc: 489 Interpretive Statements ELECTRONIC ATRIAL PACEMAKER WITH INHIBITION ELECTRONIC VENTRICULAR PACEMAKER NO FURTHER INTERPRETATION IS POSSIBLE ATYPICAL ECG COMPARED TO ECG 12/27/2023 07:22:13 NO SIGNIFICANT CHANGES Electronically Signed On 01-31-2024 7:39:30 CDT by Reagan Dalton D.O.
[2024-01-31 07:28] VITALS: BP 159/70; PULSE 61; RESP 17; TEMP 36.4; O2SAT 96; BMI 32.9
[2024-01-31 07:50] LABS: Anion Gap 8 mmol/L (8-16); Blood Urea Nitrogen 14 mg/dL (9-20); Carbon Dioxide 26 mmol/L (22-30); Chloride 106 mmol/L (98-107); Estimated CRCL calculation 55 ml/min; Estimated Glomerular Filt Rate > 60; Glucose 106 mg/dL (65-110); Magnesium 2.2 mg/dL (1.6-2.3); Sodium 140 mmol/L (137-145)
== END 2024-01-31 09:00 | disposition home or self-care (01) ==
PROVIDERS: PCP Family Medicine; Visit Provider Specialist
PROC: 5A2204Z Restoration of Cardiac Rhythm, Single (ICD-10-PCS; principal; 2024-01-31 08:30)
DX: I48.0 Paroxysmal atrial fibrillation (principal); G47.33 Obstructive sleep apnea (adult) (pediatric); I10 Essential (primary) hypertension; K21.9 Gastro-esophageal reflux disease without esophagitis; Z99.89 Dependence on other enabling machines and devices; Z98.890 Other specified postprocedural states; Z90.49 Acquired absence of other specified parts of digestive tract; Z95.0 Presence of cardiac pacemaker; Z87.891 Personal history of nicotine dependence; Z86.79 Personal history of other diseases of the circulatory system; Z92.89 Personal history of other medical treatment; Z85.72 Personal history of non-Hodgkin lymphomas; Z82.49 Family history of ischemic heart disease and other diseases of the circulatory system; Z80.9 Family history of malignant neoplasm, unspecified; Z53.9 Procedure and treatment not carried out, unspecified reason
CPT/HCPCS: 36415; 80048; 83735; 99213; G0463; J7030

== ENCOUNTER 2024-03-22 14:22 | Outpatient (CLI) | payer MEDICARE, SELFPAY ==
--- NOTE | ~2024-03-22 | XR_ITS ---
EXAMINATION: XR knee LT min 4V DATE: 03/22/2024 14:58 INDICATION: Left knee pain. Swelling. TECHNIQUE: 4 views of left knee including standing views were obtained. COMPARISON: None. FINDINGS: There is lateral subluxation of patella. No fracture. There is mild tricompartmental osteoa rthritis. No knee joint effusion. IMPRESSION: 1. Mild left knee osteoarthritis. Reviewed, dictated and finalized at location E.
== END 2024-03-22 14:23 | disposition home or self-care (01) ==
LOC: ANHIMG 14:26
PROVIDERS: PCP Family Medicine; Visit Provider Registered Nurse
DX: M17.12 Unilateral primary osteoarthritis, left knee (principal)
CPT/HCPCS: 73564

== ENCOUNTER 2024-07-06 11:41 | Outpatient (CLI) | payer MEDICARE, SELFPAY ==
[2024-07-06 12:26] LABS: Basophils Absolute Auto 0.1 K/mm3 (0.0-0.1); Basophils Percent Auto 1.6 % (0.2-1.2); Eosinophils Absolute Auto 0.3 K/mm3 (0-0.3); Eosinophils Percent Auto 3.4 % (0-4.4); Immature Granulocyte Absolute 0.03 K/mm3 (0.00-0.031); Immature Granulocyte Percent A 0.4 % (0-0.5); Lymphocytes Absolute Auto 1.62 K/mm3 (0.9-3.2); Lymphocytes Percent Auto 20.1 % (18.3-44.2); Mean Corpuscular HGB Conc 33.3 g/dl (32-36); Mean Corpuscular Hemoglobin 33.5 pg (26-34); Mean Corpuscular Volume 100.5 fl (80-100); Mean Platelet Volume 10.8 fl (7.4-10.4); Monocytes Absolute Auto 0.8 K/mm3 (0.1-0.6); Monocytes Percent Auto 10.1 % (2.6-8.5); Neutrophils Absolute Auto 5.2 K/mm3 (1.3-6.7); Neutrophils Percent Auto 64.4 % (45.5-73.1); Platelet Count Result 242 k/mm3 (150-375); Red Blood Count 4.18 M/mm3 (4.6-6.20); Red Cell Distribution Width 13.2 % (11.5-14.5)
[2024-07-06 12:48] LABS: Alanine Aminotransferase 24 U/L (6-50); Albumin Level 3.8 g/dL (3.5-5.1); Alkaline Phosphatase 70 U/L (38-126); Anion Gap 8 mmol/L (4-12); Aspartate Amino Transferase 32 U/L (17-59); Bilirubin,Total 0.8 mg/dL (0.2-1.3); Blood Urea Nitrogen 14 mg/dL (9-20); Calcium 9.4 mg/dL (8.4-10.2); Carbon Dioxide 28 mmol/L (22-30); Chloride 104 mmol/L (98-107); Estimated Glomerular Filt Rate > 60; Glucose 95 mg/dL (65-110); Potassium 4.1 mmol/L (3.4-5.0); Sodium 140 mmol/L (137-145)
== END 2024-07-06 11:42 | disposition home or self-care (01) ==
LOC: ANHLAB 11:43
PROVIDERS: PCP Family Medicine; Visit Provider Registered Nurse
DX: I10 Essential (primary) hypertension (principal)
CPT/HCPCS: 36415; 80053; 85025

== ENCOUNTER 2025-01-03 10:23 | Outpatient (CLI) | payer MEDICARE, SELFPAY ==
[2025-01-03 10:49] LABS: Basophils Absolute Auto 0.1 K/mm3 (0.0-0.1); Basophils Percent Auto 1.6 % (0.2-1.2); Eosinophils Absolute Auto 0.2 K/mm3 (0-0.3); Eosinophils Percent Auto 3.2 % (0-4.4); Hematocrit 45.7 % (42.0-52.0); Hemoglobin 14.8 g/dL (14.0-18.0); Immature Granulocyte Absolute 0.01 K/mm3 (0.00-0.031); Immature Granulocyte Percent A 0.2 % (0-0.5); Lymphocytes Absolute Auto 1.48 K/mm3 (0.9-3.2); Lymphocytes Percent Auto 23.9 % (18.3-44.2); Mean Corpuscular HGB Conc 32.4 g/dl (32-36); Mean Corpuscular Hemoglobin 32.6 pg (26-34); Mean Corpuscular Volume 100.7 fl (80-100); Mean Platelet Volume 10.7 fl (7.4-10.4); Monocytes Absolute Auto 0.7 K/mm3 (0.1-0.6); Monocytes Percent Auto 10.8 % (2.6-8.5); Neutrophils Absolute Auto 3.7 K/mm3 (1.3-6.7); Neutrophils Percent Auto 60.3 % (45.5-73.1); Platelet Count Result 236 k/mm3 (150-375); Red Blood Count 4.54 M/mm3 (4.6-6.20); White Blood Count 6.2 K/mm3 (4.5-10.0)
[2025-01-03 11:02] LABS: Alanine Aminotransferase 29 U/L (6-50); Albumin Level 3.8 g/dL (3.5-5.1); Alkaline Phosphatase 72 U/L (38-126); Anion Gap 7 mmol/L (4-12); Aspartate Amino Transferase 37 U/L (17-59); Bilirubin,Total 0.9 mg/dL (0.2-1.3); Blood Urea Nitrogen 15 mg/dL (9-20); Calcium 10.1 mg/dL (8.4-10.2); Carbon Dioxide 33 mmol/L (22-30); Chloride 103 mmol/L (98-107); Cholesterol 143 mg/dL (0-200); Estimated Glomerular Filt Rate > 60; Glucose 92 mg/dL (65-110); HDL Direct 40 mg/dL; Potassium 4.6 mmol/L (3.4-5.0); Sodium 143 mmol/L (137-145); Triglycerides 113 mg/dL (<150)
[2025-01-03 11:05] LABS: Hemoglobin A1C 5.3 % (<5.7)
[2025-01-03 11:15] LABS: LDL Cholesterol Direct 81 mg/dL
[2025-01-03 11:36] LABS: Prostate Specific Antigen 1.1 ng/mL (< OR = 4.0)
--- OUTSIDE RECORDS SUMMARY | 2025-01-03 11:53 | XMS_ITS | Clinical Summary ---
Author Organization [facility] Address [address] [place] [address] Care Team Providers Care Border Measurer Name Role Phone Julius Sands MD Primary Care Provider [phone] Shar Diaz MD Unavailable [phone] Allergies Active Allergy Reactions Criticality Noted Date Comments Atorvastatin Muscle pain Medium 08/19/2021 Has tried about 4 statins and all caused problems. Meperidine Medications cinnamon bark (CINNAMON) 500 mg capsule take 1 by Oral route once 0 0 06/19/20 14 Active Additional Information Patient taking differently:500 mg,2 capsules, Reported on 12/11/2024 multivitamin tablet tablet take 1 tablet by oral route every day with food 0 0 08/28/20 14 Active loratadine (CLARITIN) 10 mg tablet take 1 tablet by oral route every day 0 0 08/28/20 14 Active lecithin 1,200 mg capsule take one by mouth in the am 0 0 10/23/20 16 Active Additional Information Patient taking differently:1,200 mg,2 tablets, Reported on 12/11/2024 inulin-sorbitol (FIBER SUPPLEMENT, INULIN,) 2 gram tablet,chewable take 2 tabs in the am 0 0 10/23/20 16 Active folic acid (FOLVITE) 800 mcg tablet Take 1 tablet (0.8 mg total) by mouth daily. Take 3 tabs po in the morning 10/18/20 17 Active Additional Information Patient taking differently:0.8 mg oral Daily,Take 1 tab po in the morning, Reported on 12/11/2024 furosemide (LASIX) 40 mg tablet TAKE 1 TABLET(40 MG) BY MOUTH TWICE DAILY 180 tablet 08/26/20 22 Active rivaroxaban (Xarelto) 20 mg tabletIndicatio ns:atrial fibrillation Take 1 tablet (20 mg total) by mouth daily 90 tablet 3 09/22/20 22 Active metoprolol tartrate (LOPRESSOR) 50 mg immediate release tablet Take 1.5 tablets (75 mg total) by mouth 2 (two) times a day 270 tablet 3 10/16/20 22 Active saw palmetto 450 mg capsule 2 tablets 02/07/20 23 Active lisinopriL (PRINIVIL,ZESTR IL) 40 mg tablet Take 1 tablet (40 mg total) by mouth every evening 12/13/19 24 Active lisinopriL (PRINIVIL,ZESTR IL) 20 mg tablet Take 1 tablet (20 mg total) by mouth daily Active lisinopril (PRINIVIL,ZESTR IL) 20 mg tablet take 1 tab every morning and take 2 tabs every evening 0 0 06/19/20 14 2024 Discontinued(D uplicate order) finasteride (PROSCAR) 5 mg tablet Take 1 tablet (5 mg total) by mouth daily 09/21/20 18 2024 Discontinued(T herapy completed) amiodarone (PACERONE) 200 mg tabletIndicatio ns:Paroxysmal atrial flutter (CMS/HCC) (HCC) TAKE 1 TABLET(200 MG) BY MOUTH DAILY 90 tablet 1 08/29/20 24 2024 Discontinued Active Problems Problem Noted Date Diagnosed Date H/O amiodarone therapy 04/05/2023 Anxiety 04/05/2023 Morbid (severe) obesity due to excess calories 0 03/30/2023 Pacemaker-dependent due to n ative cardiac rhythm insufficient to support life 09/21/2022 MADDEN (dyspnea on exertion) 08/19/2021 Abnormal stress test 08/19/2021 Hypercholesteremia 08/19/2021 Statin intolerance 08/19/2021 Caregiver with fatigue 08/08/2020 Chronic pain of both shoulders 08/07/2020 History of non-Hodgkin's lymphoma 01/22/2020 On amiodarone therapy 07/24/2019 Paroxysmal atrial flutter (CMS/HCC) 10/26/2018 Pacemaker 10/23/2017 Overview (11/30/2023): Vela Assrey Dual Pacemaker, Dx; SSS, Afib/Aflutter. DOI 11/24/2023-[facility]. Chronic leads 05/18/2014. Josef remote monitoring. Chronic anticoagulation 10/23/2016 Overview (02/12/2017): Chronic anticoagulation Obesity with body mass index 30 or greater 08/27 Overview (02/12/2017): Obesity (BMI 35.0-39.9 without comorbidity) Sinoatrial node dysfunction (CMS/HCC) 02/26/2015 Overview (02/12/2017): Sinus node dysfunction Obstructive sleep apnea syndrome 02/26/2015 Overview (02/12/2017): Obstructive sleep apnea syndrome Essential hypertension 02/26/2015 Overview (02/12/2017): Essential hypertension Resolved Problems Problem Noted Date Diagnosed Date Resolved Date Left flank discomfort 03/30/20232022 Cough 08/19/2021 10/05/2023 Chest heaviness 08/07/2020 10/05/2023 Medication management 07/24/20192022 Persistent atrial fibrillation 10/26/2018 10/26/2018 PAF (paroxysmal atrial fibri llation) (CMS/HCC) 10/23/2017 10/26/2018 Encounters Date Type Department Care Team Description 12/19/2024 8:00 AM SYSTEM ADMINISTRATOR Ancillary Procedure [facility] [address] [place] [address] Pacemaker (Primary Dx); Paroxysmal atrial flutter (CMS/HCC) (HCC); SSS (sick sinus syndrome) (CMS/HCC) (HCC); Sinoatrial node dysfunction (CMS/HCC) (HCC) 12/19/2024 Orders Only [facility] Cardiology [address] [place] [address] Mario Chambers MD NICM (nonischemic cardiomyopathy) (CMS/HCC) (HCC) (Primary Dx); ICD (implantable cardioverter-defibri llator) in place; Ventricular fibrillation (CMS/HCC) (HCC); NSVT (nonsustained ventricular tachycardia) (HCC) 12/11/2024 8:45 AM SYSTEM ADMINISTRATOR Office Visit [facility] Card[facility] [address] [place] [address] Mario Chambers MD Sinoatrial node dysfunction (CMS/HCC) (HCC) (Primary Dx); Paroxysmal atrial flutter (CMS/HCC) (HCC); Pacemaker from Last 3 Months Surgical History Surgery Date Site/Laterality Comments TONSILLECTOMY AND ADENOIDECTOMY GALLBLADDER SURGERY HERNIA REPAIR COLONOSCOPY W/ ENDOSCOPIC FNA/FNB SPERMATOCELECTOMY HIP SURGERY SHOULDER SURGERY INSERT / REPLACE / REMOVE PACEMAKER CATARACT EXTRACTION LIPOMA RESECTION CHOLECYSTECTOMY JOINT REPLACEMENT Medical History Medical History Date Comments Hx Other Medical paroxysmal A. f ib; Comments[place] [facility] [place] - Hx Other Medical tonsillectomy, cholecystectomy, hernia repair, tot; Comments: [facility] [place] - Hx Other Medical ANNABELLA on CPAP, [place] FB, RBBB, GERD, osteoarthritis; Comments: [facility] [place] - Hx Other Medical lymphoma in rem ission (Jarrett), hypertension, ob; Comments: [facility] [place]/19[place] - Lymphoma (HCC) Atrial fibrillation (CMS/HCC) (HCC) Arthritis 1968 Cataract 2019 Heart disease 2015 Hypertension 1994 Sleep apnea 1994 Mixed conductive and sensori neural hearing loss 2018 Kidney stone 1969 Family History Medical History Relation Name Comments Cancer Brother R Coronary artery disease Brother R Bonnie nary artery disease; Cancer Mother M Cancer Sister D Relation Name Status Comments Brother R Mother M Sister D Social History Tobacco Use Types Packs/Day Years Used Date Smoking Tobacco: Former Smokeless Tobacco: Former Tobacco Cessation:Counseling Given: Not Answered Comments:Stopped using tobacco at the age of 25! Alcohol Use Standard Drinks/Week Comments Yes 0 (1 standard drink = 0.6 oz pur e alcohol) Sex and Gender Information Value Date Recorded Sex Assigned at Not on file Legal Sex Male 8:52 PM SYSTEM ADMINISTRATOR Gender Identity Male 04/27/2024 11:06 AM CDT Sexual Orientation Choose not to disclose 2018 8:12 PM CDT Obstetrics History Last Filed Vital Signs Vital Sign Reading Time Taken Comments Blood Pressure 160/80 12/11/2024 8:24 AM SYSTEM ADMINISTRATOR Pulse 91 12/11/2024 8:24 AM SYSTEM ADMINISTRATOR Temperature - - Respiratory Rate - - Oxygen Saturation 99% 12/11/2024 8:24 AM SYSTEM ADMINISTRATOR Inhaled Oxygen Concentration - - Weight 89.5 kg (197 lb 4.8 oz) 12/11/2024 8:24 A M SYSTEM ADMINISTRATOR Height 172.7 cm (5' 8 ) 12/11/2024 8:24 AM SYSTEM ADMINISTRATOR Body Mass Index 30 12/11/2024 8:24 AM SYSTEM ADMINISTRATOR Plan of Treatment Health Maintenance Due Date Last Done Comments Depression Screening 1939 Fall Risk Assessment 1939 DTaP/Tdap/Td Vaccine (1 - Tdap) 1950 Hepatitis B Screening 1957 Zoster Vaccine (1 of 2) 1989 Well Visit 65+ 2004 Influenza Vaccine (#1) 2024 08/11/2017, 2015 Pneumococcal vaccine 65+ Completed 08/11/2017, 05/2016 Medical Devices Implanted Type Area Avionics Mechanic Device Identifier Shelf Expiration Date Model / Serial / Lot Pacemaker-05/08 Implanted:09/2014 by Malissa Bunch (Quantity not on file) Pacemaker Chest [employer] SSS, Afib ASSURITY [id number] / [id number] / Insurance MEDICARE [facility] Address: [id number] [place] [address] MEDICARE [facility] MEDICARE [facility] Address: [address] [address] [place] [address] Care Teams Border Measurer Relationship Specialty Start Date End Date Julius Sands MD PCP - General Family Medicine 12/30/18 Shar Diaz MD Referring Physician Ophthalmology 12/02/20
--- OUTSIDE RECORDS SUMMARY | 2025-01-03 11:53 | XMS_ITS | Clinical Summary ---
Author Organization [facility] Address [facility] [place] [address] Care Team Providers Care Dials Supervisor Name Role Phone Unavailable Primary Care Provider Unavailabl e Social History Tobacco Use Types Packs/Day Years Used Date Smoking Tobacco: Never Assessed Sex and Gender Information Value Date Recorded Sex Assigned at Not on file Legal Sex Male 4:16 PM CDT Gender Identity Not on file Sexual Orientation Not on file Plan of Treatment Health Maintenance Due Date Last Done Comments DTaP, Tdap and Td Vaccines ( 1 - Tdap) 1958 Zoster Vaccines (1 of 2) 1989 Pneumococcal Vaccine: 65+ Ye ars (1 of 1 - PCV) 2004 RSV Immunization or 60+ Years (1 - 1-dose 75+ series) 2014 COVID-19 Vaccine ( - 2023-2 5 season) 2024 Influenza Adult (#1) 2024 Meningococcal B Vaccine Aged Out No l onger eligible based on patient's age to complete this topic Meningococcal Vaccine Aged Out No jaclyn beulah eligible based on patient's age to complete this topic RSV Immunizations Under 20 Months Aged Out No longer eligible based on patient's age to complete this topic
--- OUTSIDE RECORDS SUMMARY | 2025-01-03 11:53 | XMS_ITS | Data Portability ---
Author Organization [place] [facility] [employer], Main Office Address [address] [place] [address] Care Team Providers Care Communications Tower Climber Name Role Phone QUIRINO ADDISON Primary Care Provider [phone] IDRIS BARBA OTHER Assessment Encounter Date Assessment Date Assessment LastModified by Organization Details LastModified Time 02/12/2023 02/12/2023 Spent up to 45 minutes preparing to see the patient (eg, review of tests), obtaining and/or reviewing separately obtained history, performing a medically appropriate examination and evaluation, counseling and educating the patient, ordering medications, tests, along with documenting clinical information in the electronic health record, independently interpreting results and communicating results to the patient. Not available 02/12/2023 13:52:58 Plan of Treatment Reminders Order Date Submit Date Provider Last Modified By Organization Details Last Modified Time Details Appointments None recorded. Lab None recorded. Referral None recorded. Procedures None recorded. Surgeries None recorded. Imaging polysomnogr am, titration study - Patient prefers the [facility] location no auth needed 2022 023 [email or web address] [facility] [place], [address] [place], [address], 09:43:05 Medication Orders None recorded. Patient TargetsNo targets recorded. Patient InstructionsNo instructions recorded. Reason for Referral None Reported. Results Created Date Observation Date Name Description Value Unit Range Abnormal Flag Note LastModifiedBy Organization Detail LastModifiedTime 02/13/2010/20/2001 polys omnog shannon, split night No observ ation record ed. [email or web address] Not Available 02/16 09:26:59 Result Notes None recorded. Problems Name Problem SNOMED Code Status Onset Date Resolution Date Notes Provider Name and Address Organization Details Recorded Time Mixed sleep apnea 000114602 Active 2022 Bridget Lily [facility] [address] [address], [place], [address], [facility] [employer] [facility] 3 11:28:38 Fatigue 19702159 Active 2022 Bridget Lily [facility] [address], [place], [address], [facility] [employer] [facility] [employer] 3 13:51:11 Hypertensive disorder 37435254 Active 2022 Bridget Lily [facility] [address], [place], [address], [facility] [employer] [facility] [employer] 3 13:51:41 Notes:Mario Garza i, NP [facility] home sleep study 12/07/22 AHI = 50 Medical History: NHL Obesity with very severe OSAHS, AHI = 50, 12/07/22, on autoCPAP c/o IVRC Thyroid nodule Hypertension Atrial fibrillation on Xarelto CHF Renal calculi BPH Procedure History: FNA thyroid biopsy 2006 PPP Problem Notes None recorded. Procedures Surgical History None recorded. Imaging Results Imaging Date Name Status LastModified by Organiz ation Details LastModified Time 10/20/2001 polysomnogr am, split night completed Information not available 02/16/2023 09:26:59 Procedure Notes None recorded. Medical Equipment None Reported. Allergies Allergen ID Allergen Name Allergen Category Reaction Reaction Severity Criticality Documentation Date Start Date Code Code System Note Provider Name and Address Organization Details Recorded Time 25615 meperidin e medicatio n Not available Not available Not available 03/17/2023 6754 RxNorm Huyen Meier null, [facility] [employer] 3 10:05:45 Medications Name Sig Start Date Stop Date Status Note LastModified by Organization Details LastModified Time furosemide 40 mg tablet active Not Available Not Available Not Available amitriptylin e 75 mg tablet 05/30 completed Not Available Not Available Not Available metoprolol tartrate 100 mg tablet 02/12 completed Not Available Not Available Not Available amiodarone 200 mg tablet active Not Available Not Available Not Available lisinopril 20 mg tablet TAKE 1 TABLET BY MOUTH EVERY DAY IN THE MORNING active Not Available Not Available No t Available amlodipine 5 mg tablet TAKE 1 TABLET BY MOUTH DAILY 02/12 completed Not Available Not Available Not Available amlodipine 10 mg tablet TAKE 1 TABLET BY MOUTH EVERY MORNING active Not Available Not Available No t Available metoprolol tartrate 50 mg tablet active Not Available Not Available No t Available finasteride 5 mg tablet TAKE 1 TABLET BY MOUTH EVERY DAY active Not Available Not Available No t Available metoprolol tartrate 25 mg tablet 05/30 completed Not Available Not Available Not Available Xarelto 20 mg tablet TAKE 1 TABLET BY MOUTH EVERY DAY active Not Available Not Available No t Available Vitals Date Recorded Body weight Body temperature Heart rate Oxygen saturation Oxygen saturation in Arterial blood by Pulse oximetry Systolic blood pressure Diastolic blood pressure Provider Name and Address Organization Details Last Updated DateTime 3 408773. 06 g 97.5 [degF] 66 /min 97 % 97 % 122 mm[Hg] 70 mm[Hg] Renita Mcfarlane MA [facility] [employer] [facility] 3 10:57:35 Date Recorded Body height Body mass index (BMI) Body weight Body temperature Heart rate Oxygen saturation Oxygen saturation in Arterial blood by Pulse oximetry Systolic blood pressure Diastolic blood pressure Provider Name and Address Organization Details Last Updated DateTime 3 172.72 cm 35.3 kg/m2 464064. 43 g 96.9 [degF] 65 /min 98 % 98 % 90 mm[Hg] 50 mm[Hg] Huyen Meier [facility] [employer] [facility] 3 10:04:10 Social History Question Answer Notes LastModified by Organizat ion Details LastModified Time Tobacco Smoking Status Former Smoker Huyen Meier [facility] [employer] [facility] 03/17/2023 10:08:41 What Is Your Level Of Alcohol Consumption? None [email or web address] Information not available 03/17/2023 What Is Your Level Of Caffeine Consumption? Moderate [email or web address] Information not available 03/17/2023 Do You Have Any Pets? Yes [email or web address] Information not available 03/17/2023 At What Age Did You Start Smoking Tobacco? 5 Information not available 03/17/2023 Do You Use Any Illicit Or Recreational Drugs? No [email or web address] Information not available 03/17/2023 Do You Or Have You Ever Used Any Other Forms Of Tobacco Or Nicotine? No [email or web address] Information not available 03/17/2023 Sex: Unknown Functional Status None recorded. Mental Status None recorded. Family History Nothing Reported. Medical History No medical history recorded. Past Encounters Encounter ID Performer Location Encounter Start Date Encounter Closed Date Diagnosis/Indication Diagnosis SNOMED-CT Code Diagnosis ICD10 Code Diagnosis Note [id number] Bridget Bautista, [facility] [place] [address] [place] [address] 02/12/2023 10:44:26 02/12/2023 11:51:58 Mixed sleep apnea 563736741 G47.39 Home study 12/07/22 with AHI 06379 obstructiv e apneas, 17 mixed apneas, 34 central apneasHe was ordered new machine: APAP 8-18 cm H5EXtbc is intolerabl eHe [facility], [facility] last pressure setting was 16 cm B1BYmua will also send last studyOrder to change pressures todayOn 8-18 his AHI is 18.9 over 4 days of useEncoura ged 100% compliance with all sleep once pressure changes are madeFollow with PCM for labsAdvise d good sleep habits and patterns:- Set a goal for at least 7 to 8 hours of sleep time per day.-Use the bed mainly for sleep and to go to bed only when tired. If unable to fall asleep after 30 minutes, patient should get out of bed but should not engage in any activity that requires sustained mental alertness. -Maintain a regular bedtime and wake-up time even on weekends-A void excessive naps during the daytime. If a nap is necessary, limit it to no more than 30 minutes.-M inimize environmen nilsa noise, bright lights, and extremes in bedroom temperatur e.-Avoid alcohol, caffeinate d beverages, and nicotine products for at least 6 hours prior to bedtime.-A void strenuous exercise and large meals for at least 4 hours prior to bedtime.He will RTC in about a month, PRN for concerns Fatigue 49432650 R53.83 Reassess after PAP pressure changes Hypertensive disorder 38 159320 I10 Well controlled in office todayKeep log for PCM Body mass index 30+ - obesity 600633291 Z68.35 Discussed weight management .Discussed the relationsh ip between ANNABELLA and obesityHea lthy well balanced meals.Incr ease exercise, ideally 30 minutes most days of the week. [id number] Bridget Bautista, [facility] Pulmonolo gy Antony Venegas [address] [place] [address] 03/17/2023 09:55:06 03/17/2023 12:06:12 Mixed sleep apnea 531736218 G47.39 Home study 12/07/22 with AHI 32836 obstructiv e apneas, 17 mixed apneas, 34 central apneasHe was ordered new machine: APAP 8-18 cm B5YLmnk was intolerabl eHe [facility], his last pressure setting was 16 cm D3TCetuaep d today on Pressure 16cm with 97% use greater than 4 hours and AHI 23.7Order to change pressures today again, but I recommend in lab titrationA fter much discussion , he agrees.Fol low with PCM for labsAdvise d good sleep habits and patterns:- Set a goal for at least 7 to 8 hours of sleep time per day.-Use the bed mainly for sleep and to go to bed only when tired. If unable to fall asleep after 30 minutes, patient should get out of bed but should not engage in any activity that requires sustained mental alertness. -Maintain a regular bedtime and wake-up time even on weekends-A void excessive naps during the daytime. If a nap is necessary, limit it to no more than 30 minutes.-M inimize environmen nilsa noise, bright lights, and extremes in bedroom temperatur e.-Avoid alcohol, caffeinate d beverages, and nicotine products for at least 6 hours prior to bedtime.-A void strenuous exercise and large meals for at least 4 hours prior to bedtime.Di scussed reportable signs and symptomsHe will RTC in 4-6 weeks, PRN for concerns Fatigue 20989106 R53.83 MildReasse ss after PAP pressure changes and controlled AHI Hypertensive disorder 38 633957 I10 Well controlled in office todayKeep log for PCM Body mass index 30+ - obesity 622295236 Z68.35 Discussed weight management .Discussed the relationsh ip between ANNABELLA and obesityHea lthy well balanced meals.Incr ease exercise, ideally 30 minutes most days of the week. Health Concerns Section Related Observation LastModified by Organization Detai ls LastModified Time None Recorded Concern Status LastModified by Organization Details LastModified Time None Recorded Advance Directives Directive None Recorded Payers Encounter Date Sequence Insurance Name Policy Number Policy Bowen Covered Member ID Bowen Member ID Guarantor Name 02/12/2023 1 [employer] (MEDICARE REPLACEMENT/A DVANTAGE - PPO) [id number] Kentrell Andersen [id number] Kentrell Andersen 03/17/2023 1 [employer] (MEDICARE REPLACEMENT/A DVANTAGE - PPO) [id number] Kentrell Andersen [id number] Kentrell Andersen Notes Date Note Type Note Provider Name and Address Organization Details Recorded Time 02/12/2023 text/html Mr Nathaly burr ts today to establish care for further evaluation of ANNABELLA, new PAP machine, difficulty with use.Previous diagnosis, he estimates PAP use for the last 20-30 years.Machine prior to current was at least 15 years old.Dickson was required to re-study for new PAP - he completed home study 11/2022He did not have titration studyNew PAP set up 01/14/23He has not been able to use his machineSevere difficulty with use, feels like he is starved for air.Continues to use nasal pillows, these are a size medium and tells me they fit well.He has been using his old machine and tells me that he does not miss a night of useHe is concerned that his pressure is not correctReviewed medical and surgical historyReviewed family and social historyReviewed medications and allergies Bridget Bautista, [facility] [address] [facility] [address], [place], [address], [facility] [employer] 02/12/2023 13:53:12 03/17/2023 text/html Mr Nathaly burr ts today to follow up on ANNABELLA, new PAP machine, pressure changesNew PAP set up 01/14/23Fells like the pressure changes were significantly better and continues to assert that he fells good when he wakes so his PAP must be workingHe cares for his at home so in-lab titration is difficult to arrangeHe tells me that the lower pressure makes him feel starved for air and he is uninterested in any lower pressures.He follows closely with cardiology and tells me his pacemaker battery is due for a change soon - he has FU with them at the end of the monthDenies xerostomia, aerophagia, morning headachesDoes not wake at night R/T mask leak or discomfort Bridget Bautista, [facility] [address], [place], [address], [facility] 03/17/2023 12:01:52
--- OUTSIDE RECORDS SUMMARY | 2025-01-03 11:53 | XMS_ITS | Referral Summary ---
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) 12/19/2024 8:00 AM FACILITY MAINTENANCE SUPERVISOR Ancillary Procedure [facility] [address] [place] [address] [place] [address] Pacemaker (Primary Dx); Paroxysmal atrial flutter (CMS/HCC) (HCC); SSS (sick sinus syndrome) (CMS/HCC) (HCC); Sinoatrial node dysfunction (CMS/HCC) (HCC) 12/11/2024 8:45 AM FACILITY MAINTENANCE SUPERVISOR Office Visit [facility] [address] [facility] [address] [place] [phone] Mario Chambers MD Sinoatrial node dysfunction (CMS/HCC) (HCC) (Primary Dx); Paroxysmal atrial flutter (CMS/HCC) (HCC); Pacemaker from Last 3 Months Allergies Active Allergy Reactions Criticality Noted Date [...] (CMS/HCC) 10/26/2018 Pacemaker 10/23/2017 Overview (11/30/2023): Vela Assurity Dual Pacemaker, Dx; SSS, Afib/Aflutter. DOI 11/24/2023-[facility]. Chronic leads 05/18/2014. Josef remote monitoring. Chronic [...] 10/26/2018 10/26/2018 PAF (paroxysmal atrial fibri llation) ([facility]) 10/23/2017 10/26/2018 Social History Tobacco Use Types Packs/Day Years Used Date Smoking Tobacco: Former Smokeless Tobacco: Former Tobacco Cessation:Counseling Given: Not Answered Comments:Stopped using tobacco at the age of 25! Alcohol Use Standard Drinks/Week Comments Yes 0 (1 standard drink = 0.6 oz pur e alcohol) Sex and Gender Information Value Date Recorded Sex Assigned at Not on file Legal Sex Male 8:52 PM FACILITY MAINTENANCE SUPERVISOR Gender Identity Male 04/27/2024 11:06 AM CDT Sexual Orientation Choose not to disclose 2018 8:12 PM CDT Last Filed Vital Signs Vital Sign Reading Time Taken Comments Blood Pressure 160/80 12/11/2024 8:24 AM FACILITY MAINTENANCE SUPERVISOR Pulse 91 12/11/2024 8:24 AM FACILITY MAINTENANCE SUPERVISOR Temperature - - Respiratory Rate - - Oxygen Saturation 99% 12/11/2024 8:24 AM FACILITY MAINTENANCE SUPERVISOR Inhaled Oxygen Concentration - - Weight 89.5 kg (197 lb 4.8 oz) 12/11/2024 8:24 A M FACILITY MAINTENANCE SUPERVISOR Height 172.7 cm (5' 8 ) 12/11/2024 8:24 AM FACILITY MAINTENANCE SUPERVISOR Body Mass Index 30 12/11/2024 8:24 AM FACILITY MAINTENANCE SUPERVISOR Plan of Treatment Not on file Medical Devices Implanted Type Area Lead Developer Device Identifier Shelf Expiration Date Model / Serial / Lot Pacemaker-05/08 Implanted:09/2014 by Malissa Bunch (Quantity not on file) Pacemaker Chest [employer] SSS, Afib ASSURITY [id number] / [id number] / Insurance MEDICARE [employer]UTIONS MEDICARE [facility] MEDICARE SOLUTIONS Care Teams Acls Specialist Relationship Specialty Start Date End Date Julius Sands MD PCP - General Family Medicine 12/30/18 Shar Diaz MD Referring Physician Ophthalmology 12/02/20
--- OUTSIDE RECORDS SUMMARY | 2025-01-03 11:53 | XMS_ITS | Encounter Summary ---
Author Organization [facility] Address [address] [place] [address] Care Team Providers Care Morgue Librarian Name Role Phone Julius Sands MD Primary Care Provider [phone] Julius Sands MD Primary Care Provider [phone] Mere Barriga MD Primary Care Provider [phone] Surekha, Physician Primary Care Provider [phone] Julius Sands MD Primary Care Provider [phone] Shar Diaz MD Unavailable [phone] Encounter Details Date Type Department Care Team (Late st Contact Info) Description 12/30/2016 Orders Only [facility] ProviderEly MD [address] [place] [address] Social History Tobacco Use Types Packs/Day Years Used Date Smoking Tobacco: Never Assessed Alcohol Use Standard Drinks/Week Comments Yes 0 (1 standard drink = 0.6 oz pur e alcohol) Sex and Gender Information Value Date Recorded Sex Assigned at Not on file Legal Sex Male 8:52 PM MEDICAL DONATION PROFESSIONAL Gender Identity Male 04/27/2024 11:06 AM CDT Sexual Orientation Choose not to disclose 2018 8:12 PM CDT documented as of this encounter Plan of Treatment Not on file documented as of this encounter Procedures Procedure Name Priority Date/Time Associated Diagnosis Comments CARDIOLOGY REPORT 12/30/2016 documented in this encounter Results * CARDIOLOGY REPORT (12/30/2016) Anatomical Region Laterality Modality Other Narrative 12/30/2016 Ordered by an unspecified provider. us Historical Provider [facility] Final Result documented in this encounter Visit Diagnoses Not on filedocumented in this encounter Care Teams Morgue Librarian Relationship Specialty Start Date End Date Julius Sands MD PCP - General 02/05/17 11/20/18 Julius Sands MD PCP - General 02/03/16 02/04/17 Mere Barriga MD PCP - General Cardiology 11/21/18 12/28/18 No, Physician PCP - General 12/29/18 12/29/18 Julius Sands MD PCP - General Family Medicine 12/30/18 Shar Diaz MD Referring Physician Ophthalmology 12/02/20 documented as of this encounter
--- OUTSIDE RECORDS SUMMARY | 2025-01-03 11:53 | XMS_ITS | Clinical Summary ---
Author Organization [facility] Address [address] [place] [address] Phone Care Team Providers Care Private Duty Aide Name Role Phone Unavailable Primary Care Provider Unavailabl e Social History Tobacco Use Types Packs/Day Years Used Date Smoking Tobacco: Never Assessed Sex and Gender Information Value Date Recorded Sex Assigned at Not on file Legal Sex Male 1:40 PM PATIENT FINANCIAL REPRESENTATIVE Gender Identity Not on file Sexual Orientation Not on file Plan of Treatment Health Maintenance Due Date Last Done Comments Hepatitis C Virus (HCV) Screening 1940 TdaP Immunization 1940 Zoster Immunization (1 of 2) 1989 Respiratory Syncytial Virus (RSV) Immunization (Adult) (1 - 1-dose 75+ series) 2014 Influenza Immunization (#1) 07/09/202402/2017, 08/14/2016 SARS-COV-2 Immunization ( season) 2024 Pneumococcal Immunization (50+ years) Completed 08/11/2017, 08/14/2016 Pneumococcal Immunization Combined Discontinued 08/11/2017, 08/14/2016 Hepatitis B Immunization Aged Out No longer eligible based on patient's age to complete this topic Meningococcal Immunization (ACWY) Aged Out No longer eligible based on patient's age to complete this topic Rotavirus Immunization Aged Out No lo nger eligible based on patient's age to complete this topic
--- OUTSIDE RECORDS SUMMARY | 2025-01-03 11:53 | XMS_ITS | Encounter Summary ---
Author Organization [facility] Address [address] [place] [address] Care Team Providers Care Spray Foam Installer Name Role Phone Julius Sands MD Primary Care Provider [phone] Mere Barriga MD Primary Care Provider [phone] No, Physician Primary Care Provider [phone] Julius Sands MD Primary Care Provider [phone] Shar Diaz MD Unavailable [phone] Encounter Details Date Type Department Care Team (Late st Contact Info) Description 03/09/2017 Orders Only [facility] ProviderEly MD [address] [place] [address] Social History Tobacco Use Types Packs/Day Years Used Date Smoking Tobacco: Never Assessed Alcohol Use Standard Drinks/Week Comments Yes 0 (1 standard drink = 0.6 oz pur e alcohol) Sex and Gender Information Value Date Recorded Sex Assigned at Not on file Legal Sex Male 8:52 PM INSTRUMENT ROOM TECHNICIAN Gender Identity Male 04/27/2024 11:06 AM CDT Sexual Orientation Choose not to disclose 2018 8:12 PM CDT documented as of this encounter Plan of Treatment Not on file documented as of this encounter Procedures Procedure Name Priority Date/Time Associated Diagnosis Comments CARDIOLOGY REPORT 03/09/2017 documented in this encounter Results * CARDIOLOGY REPORT (03/09/2017) Anatomical Region Laterality Modality Other Narrative 03/09/2017 Ordered by an unspecified provider. us Historical Provider [facility] Final Result documented in this encounter Visit Diagnoses Not on filedocumented in this encounter Care Teams Spray Foam Installer Relationship Specialty Start Date End Date Julius Sands MD PCP - General 02/05/17 11/20/18 Mere Barriga MD PCP - General Cardiology 11/21/18 12/28/18 No, Physician PCP - General 12/29/18 12/29/18 Julius Sands MD PCP - General Family Medicine 12/30/18 Shar Diaz MD Referring Physician Ophthalmology 12/02/20 documented as of this encounter
[2025-01-03 13:35] LABS: Hepatitis C Virus Antibody Negative (Negative)
== END 2025-01-03 10:24 | disposition home or self-care (01) ==
LOC: ANHLAB 10:27
PROVIDERS: PCP Family Medicine; Visit Provider Family Medicine
DX: E78.5 Hyperlipidemia, unspecified (principal); I10 Essential (primary) hypertension; R73.01 Impaired fasting glucose; Z11.59 Encounter for screening for other viral diseases; Z12.5 Encounter for screening for malignant neoplasm of prostate
CPT/HCPCS: 36415; 80053; 80061; 83036; 84153; 85025; 86803; G0103

== ENCOUNTER 2025-11-06 07:52 | Outpatient (CLI) | payer MEDICARE, SELFPAY ==
--- OUTSIDE RECORDS SUMMARY | 2025-11-06 07:58 | XMS_ITS | Encounter Summary ---
Author Organization [facility] Address [address] [place] [address] Care Team Providers Care Engine Test Cell Technician Name Role Phone Julius Sands MD Primary Care Provider [phone] Mere Barriga MD Primary Care Provider [phone] No, Physician Primary Care Provider [phone] Julius Sands MD Primary Care Provider [phone] Shar Diaz MD Unavailable [phone] Encounter Details Date Type Department Care Team (Late st Contact Info) Description 03/09/2017 Orders Only [facility] ProviderEly MD [address] [place] [address] Social History Tobacco Use Types Packs/Day Years Used Date Smoking Tobacco: Never Assessed Alcohol Use Standard Drinks/Week Comments Yes 0 (1 standard drink = 0.6 oz pur e alcohol) Sex and Gender Information Value Date Recorded Sex Assigned at Not on file Legal Sex Male 8:52 PM ASSISTANCE REPRESENTATIVE Gender Identity Male 04/27/2024 11:06 AM CDT [...] on filedocumented in this encounter Care Teams Engine Test Cell Technician Relationship Specialty Start Date End Date Julius Sands MD PCP - General 02/05/17 11/20/18 Mere Barriga MD PCP - General Cardiology 11/21/18 12/28/18 No, Physician PCP - General 12/29/18 12/29/18 Julius Sands MD PCP - General Family Medicine 12/30/18 Shra Diaz MD Referring Physician Ophthalmology 12/02/20 documented as of this encounter
--- OUTSIDE RECORDS SUMMARY | 2025-11-06 07:58 | XMS_ITS | Encounter Summary ---
Author Organization [facility] Address [address] [place] [address] Care Team Providers Care Psych Arnp Name Role Phone Julius Sands MD Primary Care Provider [phone] Julius Sands MD Primary Care Provider [phone] Mere Barriga MD Primary Care Provider [phone] Surekha, Physician Primary Care Provider [phone] Julius Sands MD Primary Care Provider [phone] Shar Diaz MD Unavailable [phone] Encounter Details Date Type Department Care Team (Late st Contact Info) Description 12/30/2016 Orders Only [facility] ProviderEly MD [address] [place] [address] Social History Tobacco Use Types Packs/Day Years Used Date Smoking Tobacco: Never Assessed Alcohol Use Standard Drinks/Week Comments Yes 0 (1 standard drink = 0.6 oz pur e alcohol) Sex and Gender Information Value Date Recorded Sex Assigned at Not on file Legal Sex Male 8:52 PM HOSPITAL SCIENTIST Gender Identity Male 04/27/2024 11:06 AM CDT [...] on filedocumented in this encounter Care Teams Psych Arnp Relationship Specialty Start Date End Date Julius [...]
--- OUTSIDE RECORDS SUMMARY | 2025-11-06 07:58 | XMS_ITS | Clinical Summary ---
Author Organization [facility] Address [address] [place] [address] Care Team Providers Care Petroleum Inspector Name Role Phone Julius Sands MD Primary Care Provider Shar Diaz MD Unavailable [phone] Allergies Active Allergy Reactions Criticality Noted Date Comments Atorvastatin Muscle pain Medium 08/19/2021 Has tried about 4 statins and all caused problems. Meperidine Medications cinnamon bark (CINNAMON) 500 mg capsule take 1 by Oral route once 0 0 4 Active multivitamin tablet tablet take 1 tablet by oral route every day with food 0 0 4 Active loratadine (CLARITIN) 10 mg tablet take 1 tablet by oral route every day 0 0 4 Active lecithin 1,200 mg capsule take one by mouth in the am 0 0 6 Active Additional Information Patient taking differently:1,200 mg,2 tablets, Reported on 06/18/2025 inulin-sorbitol (FIBER SUPPLEMENT, INULIN,) 2 gram tablet,chewable take 2 tabs in the am 0 0 6 Active folic acid (FOLVITE) 800 mcg tablet Take 1 tablet (0.8 mg total) by mouth daily. Take 3 tabs po in the morning 7 Active Additional Information Patient taking differently:0.8 mg oral Daily,Take 1 tab po in the morning, Reported on 06/18/2025 furosemide (LASIX) 40 mg tablet TAKE 1 TABLET(40 MG) BY MOUTH TWICE DAILY 180 tablet 2 Active rivaroxaban (Xarelto) 20 mg tabletIndication s:atrial fibrillation Take 1 tablet (20 mg total) by mouth daily 90 tablet 3 2 Active metoprolol tartrate (LOPRESSOR) 50 mg immediate release tablet Take 1.5 tablets (75 mg total) by mouth 2 (two) times a day 270 tablet 3 2 Active saw palmetto 450 mg capsule 2 tablets 3 Active lisinopriL (PRINIVIL,ZESTRI L) 40 mg tablet Take 1 tablet (40 mg total) by mouth every evening 4 Active lisinopriL (PRINIVIL,ZESTRI L) 20 mg tablet Take 1 tablet (20 mg total) by mouth daily Active Active Problems Problem Noted Date Diagnosed Date [...] On amiodarone therapy 07/24/2019 Paroxysmal atrial flutter 10/26/2018 Pacemaker 10/23/2017 Overview (11/30/2023): Vela Assurity Dual Pacemaker, Dx; SSS, Afib/Aflutter. [facility] leads 05/18/2014. Josef remote monitoring. Chronic anticoagulation 10/23/2016 Overview (02/12/2017): Chronic anticoagulation Obesity with body mass index 30 or greater 08/27 Overview (02/12/2017): Obesity (BMI 35.0-39.9 without comorbidity) Sinoatrial node dysfunction 02/26/2015 Overview (02/12/2017): Sinus node dysfunction Obstructive sleep apnea syndrome 02/26/2015 Overview (02/12/2017): Obstructive sleep apnea syndrome Essential hypertension 02/26/2015 Overview (02/12/2017): Essential hypertension Resolved Problems Problem Noted Date Diagnosed Date Resolved Date Left flank discomfort 03/30/20232022 Cough 08/19/2021 10/05/2023 Chest heaviness 08/07/2020 10/05/2023 Medication management 07/24/20192022 Persistent atrial fibrillation 10/26/2018 10/26/2018 PAF (paroxysmal atrial fibrillation) 10/23/2017 10/26/2018 Encounters Date Type Department Care Team Description 09/04/2025 8:15 AM CDT Ancillary Procedure [facility] Cardiology [address] [place] [address] [place] [phone] Pacemaker (Primary Dx); Paroxysmal atrial flutter (HCC); SSS (sick sinus syndrome) (HCC); Sinoatrial node dysfunction (HCC) 08/31/2025 Telephone [facility] Cardiology [address] [facility] [address] [place] [phone] Anastasiia Foster MA Xarelto Pt Assistance Approval 08/14/2025 Telephone [facility] Cardiology [address] [facility] [address] [place] [phone] Anastasiia Foster MA Pt Assistance Forms from Last 3 Months Surgical History Surgery Date Site/Laterality Comments TONSILLECTOMY AND ADENOIDECTOMY GALLBLADDER SURGERY HERNIA REPAIR COLONOSCOPY W/ ENDOSCOPIC FNA/FNB SPERMATOCELECTOMY HIP SURGERY SHOULDER SURGERY INSERT / REPLACE / REMOVE PACEMAKER CATARACT EXTRACTION LIPOMA RESECTION CHOLECYSTECTOMY JOINT REPLACEMENT Medical History Medical History Date Comments Hx Other Medical 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 (Jarrett), hypertension, ob; Comments: [facility] 06/19/2014 - Lymphoma (HCC) Atrial fibrillation (HCC) Arthritis 1968 Cataract 2019 Heart disease 2014 Hypertension 1994 Sleep apnea 1993 Mixed conductive and sensori neural hearing loss 2017 Kidney stone 1968 Family History Medical History Relation Name Comments [...] on file Legal 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 Gender Identity Male 04/27/2024 11:06 AM CDT Sexual Orientation Choose not to disclose 2018 8:12 PM CDT Last Filed Vital Signs Vital Sign Reading Time Taken Comments Blood Pressure 130/86 06/18/2025 8:40 AM CDT Pulse 85 06/18/2025 8:40 AM CDT Temperature - - Respiratory Rate - - Oxygen Saturation 98% 06/18/2025 8:40 AM CDT Inhaled Oxygen Concentration - - Weight 88.8 kg (195 lb 12.8 oz) 06/18/2025 8:40 AM CDT Height 172.7 cm (5' 8) 06/18/2025 8:40 AM CDT Body Mass Index 29.77 06/18/2025 8:40 AM CDT Plan of Treatment Health Maintenance Due Date Last Done Comments Depression Screening 1939 Fall Risk Assessment 1939 DTaP/Tdap/Td Vaccine (1 - Tdap) 1950 Hepatitis B Screening 1957 Zoster Vaccine (1 of 2) 1989 Well Visit 65+ 2004 Influenza Vaccine (#1) 2025 08/11/2017, 2015 Pneumococcal vaccine 65+ Completed 08/11/2017, 05/2016 Medical Devices Implanted Type Area Race Car Driver Device Identifier Shelf Expiration Date Model / Serial / Lot Pacemaker-711/[id number] Implanted:09/2014 by Malissa Bunch (Quantity not on file) Pacemaker Chest [employer] SSS, Afib ASSLULI PASTRANA 2240 / [id number] / Procedures Procedure Name Priority Date/Time Associated Diagnosis Comments DEVICE CHECK - REMOTE Routine 09/04/2025 10:48 AM CDT Paroxysmal atrial flutter (HCC) SSS (sick sinus syndrome) (HCC) Sinoatrial node dysfunction (HCC) from Last 3 Months Results * DEVICE CHECK - REMOTE (09/04/2025 10:48 AM CDT) Anatomical Region Laterality Modality Other Narrative 09/17/2025 12:15 PM PRIMARY HEALTH ORGANISATION MANAGER Mirian Valdez Dual Pacemaker, Dx; SSS, Afib/Aflutter. DOI 11/24/2023-[facility]. Chronic leads 05/18/2014. Elmo remote monitoring. Routine DDIR Pacemaker Remote. Transmission attached. Battery status: 2.99 V , 4.0-7.6 years remaining battery life to MAT. Stable lead impedances, pacing and sensing thresholds. Presenting rhythm: Atrial tachycardia/VS CDC ASSOCIATE AP-< 1%, CDC ASSOCIATE-23% 2 AT/AF episodes noted, longest episode was 29 minutes and 22 seconds in duration, IEGM demonstrates AT/AF. AF [place] 50%. 16 Ventricular high rate episodes detected, IEGM demonstrates AFib with RVR. Medications: Lisinopril 20 mg, lisinopril 40 mg, metoprolol 50 mg, Xarelto 20 mg See scanned report. Office pacemaker follow up: 05/29/26 Elmo remote f/u 12/04/25. Dionte Delcid RN Mario Chambers MD CV CARDIAC SERVICES PROC EDURES Final Result from Last 3 Months Insurance [facility] MEDICARE ADVANTAGE MEDICARE [facility] UHC MEDICARE ADVANTAGE Care Teams Petroleum Inspector Relationship Specialty Start Date End Date Julius Sands MD PCP - General Family Medicine 12/30/18 Shar Diaz MD Referring Physician Ophthalmology 12/02/20
--- OUTSIDE RECORDS SUMMARY | 2025-11-06 07:58 | XMS_ITS | Clinical Summary ---
Author Organization [facility] Address [facility] [place] [address] Care Team Providers Care Air Press Operator Name Role Phone Unavailable Primary Care Provider [...] Td Vaccines ( 1 - Tdap) 1958 Pneumococcal Vaccine: 50+ Ye ars (1 of 1 - PCV) 1989 Zoster Vaccines (1 of 2) 1989 RSV Immunization or 60+ Years (1 - 1-dose 75+ series) 2014 COVID-19 Vaccine ( - 2024-2 6 season) 2025 Influenza Adult (#1) 2025 Hepatitis A Vaccines Aged Out No long er eligible based on patient's age to complete this topic Meningococcal B Vaccine Aged Out No l onger eligible based on patient's age to complete this topic Meningococcal Vaccine Aged Out No jaclyn beulah eligible based on patient's age to complete this topic RSV Immunizations Under 20 Months Aged Out No longer eligible based on patient's age to complete this topic
--- OUTSIDE RECORDS SUMMARY | 2025-11-06 07:58 | XMS_ITS | Data Portability ---
Author Organization [facility], Main Office Address [address] [place] [address] Care Team Providers Care Liquid Chlorine Operator Name Role Phone QUIRINO ADDISON Primary Care Provider IDRIS BARBA OTHER Assessment Encounter Date Assessment [...] results and communicating results to the patient. [email or web address] Not available 02/12/2023 13:52:58 Plan of Treatment Reminders Order Date Submit Date Provider Last Modified By Organization Details Last Modified Time Details Appointments None recorded. Lab None recorded. Referral None recorded. Procedures None recorded. Surgeries None recorded. Imaging polysomnogr am, titration study - Patient prefers the [facility] location no auth needed 2022 023 [email or web address] [address] [facility], [address] [place], [address], 09:43:05 Medication Orders None recorded. Patient TargetsNo [...] Organization Details Recorded Time Mixed sleep apnea 040895402 Active 2022 Bridget Lily [facility] [address] [address], [place], [address], [facility] [employer] 3 11:28:38 Fatigue 18279186 Active 2022 Bridget Lily [facility] [address] [facility] [address], [place], [address], [facility] [employer] [facility] [employer] 3 13:51:11 Hypertensive disorder 66028602 Active 2022 Bridget Lily [facility] [address], [facility] [address], [place], [address], [facility] [employer] 3 13:51:41 Notes:Mario Garza i, NP [facility] home sleep study 12/07/22 AHI = 50 Medical History: NHL Obesity with very severe OSAHS, AHI = 50, 12/07/22, on autoCPAP c/o IVRC Thyroid nodule Hypertension Atrial fibrillation on Xarelto CHF Renal calculi BPH Procedure History: FNA thyroid biopsy 2006 PPP Problem Notes None recorded. Medical Equipment None Reported. Allergies Allergen ID Allergen Name Allergen Category Reaction Reaction Severity Criticality Documentation Date Start Date Code Code System Note Provider Name and Address Organization Details Recorded Time 11596 meperidin e medicatio n Not available Not available Not available 03/17/2023 6754 RxNorm [facility] [employer] 3 10:05:45 Medications Name Sig Start Date [...] weight Body temperature Heart rate Oxygen saturation Systolic And Diastolic Provider Name and Address Organization Details Last Updated DateTime 3 272781. 06 g 97.5 [degF] 66 /min 97 % 122/70 mm[Hg] Renita Mcfarlane MA [facility] [employer] [facility] 3 10:57:35 Date Recorded Body height Body mass index (BMI) Body weight Body temperature Heart rate Oxygen saturation Systolic And Diastolic Provider Name and Address Organization Details Last Updated DateTime 3 172.72 cm 35.3 kg/m2 286783. 43 g 96.9 [degF] 65 /min 98 % 90/50 mm[Hg] Huyen Meier [facility] [employer] [facility] 3 10:04:10 Social History Question Answer Notes LastModified by [employer] Details LastModified Time Tobacco Smoking Status Former Smoker Huyen Meier [facility] [employer] [facility] 03/17/2023 10:08:41 What Is Your Level Of Caffeine Consumption? Moderate [email or web address] Information not available 03/17/2023 Do You Have Any Pets? Yes [email or web address] Information not available 03/17/2023 At What Age Did You Start Smoking Tobacco? 5 [email or web address] Information not available 03/17/2023 Sex: Unknown Functional Status Question Answer Note LastModified by Organizat ion Details LastModified Time Do you use any illicit or recreational drugs? No [email or web address] Information not available 03/17/2023 Do you or have you ever used any other forms of tobacco or nicotine? No [email or web address] Information not available 03/17/2023 What is your level of alcohol consumption? None [email or web address] Information not available 03/17/2023 Mental Status None recorded. Family History Nothing Reported. Medical History No medical history recorded. Past Encounters Encounter ID Performer Location Encounter Start Date Encounter Closed Date Diagnosis/Indication Diagnosis SNOMED-CT Code Diagnosis ICD10 Code Diagnosis IMO Codes Diagnosis Note [id number] [facility] [address] [place] [address] 02/12/2023 10:44:26 02/12/2023 11:51:58 Mixed sleep apnea 064713059 G47.39 Home study 12/07/22 with AHI 71032 obstructiv e apneas, 17 mixed apneas, 34 central apneasHe was ordered new machine: APAP 8-18 cm E7MRexr is intolerabl eHe [facility] his last pressure setting was 16 cm [id number] will also send last studyOrder to change [...] about a month, PRN for concerns Fatigue 93094233 R53.83 Reassess after PAP pressure changes Hypertensive disorder 38 810810 I10 Well controlled in office todayKeep log for PCM Body mass index 30+ - obesity 049691971 Z68.35 Discussed weight management .Discussed the relationsh ip between ANNABELLA and obesityHea lthy well balanced meals.Incr ease exercise, ideally 30 minutes most days of the week. [id number] BLANCA Israel [facility] [place] [address] [place] [address] 03/17/2023 09:55:06 03/17/2023 12:06:12 Mixed sleep apnea 515300938 G47.39 Home study 12/07/22 with AHI 71055 obstructiv e apneas, 17 mixed apneas, 34 central apneasHe was ordered new machine: APAP 8-18 cm [id number] was intolerabl eHe [facility], his last pressure setting was 16 cm [id number] d today on Pressure 16cm with 97% [...] in 4-6 weeks, PRN for concerns Fatigue 05800194 R53.83 MildReasse ss after PAP pressure changes and controlled AHI Hypertensive disorder 38 080178 I10 Well controlled in office todayKeep log for PCM Body mass index 30+ - obesity 896525354 Z68.35 Discussed weight management .Discussed the relationsh ip between ANNABELLA and obesityHea lthy well balanced meals.Incr ease exercise, ideally 30 minutes most days of the week. Health Concerns Section Related Observation LastModified by Organization Detai ls LastModified Time None Recorded Concern Status LastModified by Organization Details LastModified Time None Recorded Advance Directives Directive None Recorded Payers Insurance Date Sequence Insurance Name Policy Number Policy Bowen Covered Member ID Bowen Member ID Guarantor Name 03/29/2023 1 [facility] (MEDICARE REPLACEMENT/A DVANTAGE - PPO) [id number] Kentrell Andersen [id number] Kentrell Andersen Notes Date Note Type Note Provider Name and Address Organization Details Recorded Time 02/12/2023 text/html Mr Andersen presents today to establish care for further evaluation [...] family and social historyReviewed medications and allergies DEEPTHI [facility] [address] [employer], [place], [address], [employer] 02/12/2023 13:53:12 03/17/2023 text/html Mr Andersen presents today to follow up on ANNABELLA, new [...] at night R/T mask leak or discomfort DEEPTHI [facility] [address], [place], [address], [employer] 03/17/2023 12:01:52
--- OUTSIDE RECORDS SUMMARY | 2025-11-06 07:58 | XMS_ITS | Clinical Summary ---
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 Gender Identity Not on file Sexual Orientation Not on file Plan of Treatment Health Maintenance Due Date Last Done Comments Hepatitis C Virus (HCV) Screening 1940 TdaP Immunization 1940 Zoster Immunization (1 of 2) 1989 Respiratory Syncytial Virus (RSV) Immunization (Adult) (1 - 1-dose 75+ series) 2014 Influenza Immunization (#1) 07/09/202502/2017, 08/14/2016 SARS-COV-2 Immunization ( - season) 2025 Pneumococcal Immunization (5 0+ years) Completed 08/11/2017, 08/14/2016 Pneumococcal Immunization Combined Discontinued 08/11/2017, 08/14/2016 Hepatitis B Immunization Aged Out No longer eligible based on patient's age to complete this topic Human Papillomavirus (HPV) Immunization Aged Out No longer eligible based on patient's age to complete this topic Meningococcal Immunization (ACWY) Aged Out No longer eligible based on patient's age to complete this topic Rotavirus Immunization Aged Out No lo nger eligible based on patient's age to complete this topic
[2025-11-06 08:34] LABS: Hematocrit 42.3 % (42.0-52.0); Hemoglobin 14.0 g/dL (14.0-18.0); Immature Granulocyte Percent A 0.3 % (0-0.5); Lymphocytes Absolute Auto 1.53 K/mm3 (0.9-3.2); Mean Corpuscular HGB Conc 33.1 g/dl (32-36); Mean Corpuscular Hemoglobin 32.6 pg (26-34); Mean Corpuscular Volume 98.6 fl (80-100); Nucleated Red Blood Cells Absolute Auto 0.000 K/mm3 (0.0-0.012); Nucleated Red Blood Cells Perc 0.0 % (0.0-0.2); Platelet Count Result 238 k/mm3 (150-375); Red Blood Count 4.29 M/mm3 (4.6-6.20); White Blood Count 6.4 K/mm3 (4.5-10.0)
[2025-11-06 08:47] LABS: Hemoglobin A1C 5.6 % (<5.7)
[2025-11-06 08:55] LABS: INR 2.5; Prothrombin Time 26.8 Seconds (11.1-14.7)
[2025-11-06 08:56] LABS: Partial Thromboplastin Time 51.5 Seconds (22.3-36.8)
[2025-11-06 08:57] LABS: Alanine Aminotransferase 17 U/L (6-50); Albumin Level 4.0 g/dL (3.5-5.1); Alkaline Phosphatase 90 U/L (38-126); Anion Gap 6 mmol/L (4-12); Aspartate Amino Transferase 32 U/L (17-59); Bilirubin,Total 1.0 mg/dL (0.2-1.3); Blood Urea Nitrogen 15 mg/dL (9-20); Calcium 10.2 mg/dL (8.4-10.2); Carbon Dioxide 29 mmol/L (22-30); Chloride 107 mmol/L (98-107); Cholesterol 152 mg/dL (0-200); Estimated Glomerular Filt Rate 59; Glucose 108 mg/dL (65-110); HDL Direct 37 mg/dL; Magnesium 2.1 mg/dL (1.6-2.3); Potassium 4.0 mmol/L (3.4-5.0); Sodium 142 mmol/L (137-145); Total Protein 7.3 g/dL (6.3-8.2); Triglycerides 108 mg/dL (<150)
[2025-11-06 09:14] LABS: MALB Creatinine Ratio 98.9 mg/g (0-30)
[2025-11-06 09:23] LABS: Free T4 Free Thyroxine 1.38 ng/dL (0.78-2.19)
[2025-11-06 09:26] LABS: Prostate Specific Antigen 1.4 ng/mL (< OR = 4.0)
[2025-11-06 09:35] LABS: NT Pro B Type Natriuretic Pept 934 pg/mL (19.9-100)
[2025-11-06 10:09] LABS: Vitamin B12 663.0 pg/mL (239-931)
[2025-11-06 10:51] LABS: Thyroid Stimulating Hormone 1.620 uIU/mL (0.465-4.680); Total Triiodothyronine (T3) 1.07 NG/ML (0.82-1.58)
== END 2025-11-06 07:53 | disposition home or self-care (01) ==
PROVIDERS: PCP Family Medicine; Visit Provider Nurse Practitioner Family
DX: R53.1 Weakness (principal); E78.5 Hyperlipidemia, unspecified; I50.9 Heart failure, unspecified; R73.01 Impaired fasting glucose; E04.2 Nontoxic multinodular goiter; Z79.01 Long term (current) use of anticoagulants; Z13.9 Encounter for screening, unspecified
CPT/HCPCS: 36415; 80053; 80061; 82043; 82306; 82607; 82746; 83036; 83735; 83880; 84153; 84439; 84443; 84480; 85025; 85610; 85730